=== PATIENT | male | born 1960 | race Caucasian/White ===

== ENCOUNTER 2017-10-20 05:14 | Outpatient (CLI) | payer MEDICARE, MEDICAID ==
[~2017-10-20 05:14] MED LIST: CHOL100046 PO; CYAN-19 PO; DILT240C52 PO; FLO0.4C PO; HYDR-565 PO; LEVO125T PO; METO50TA7 PO; ROSU40TA PO
== END 2017-10-20 23:59 | disposition home or self-care (01) ==
LOC: DIABETIC 05:14
PROVIDERS: ATTEND Specialist
DX: I13.0 Hypertensive heart and chronic kidney disease with heart failure and stage 1 through stage 4 chronic kidney disease, or unspecified chronic kidney disease (principal); E11.22 Type 2 diabetes mellitus with diabetic chronic kidney disease; N18.9 Chronic kidney disease, unspecified; J44.9 Chronic obstructive pulmonary disease, unspecified
CPT/HCPCS: G0108

== ENCOUNTER 2017-12-02 22:50 | Inpatient (IN) | payer MEDICARE, MEDICAID ==
[~2017-12-02] VITALS: Ht 193 cm; Wt 113.6 kg
[2017-12-02] MEDS ORDERED: morphine 4 MG/ML inj SYRINge IV ONE (23:55)
[2017-12-02] MEDS ORDERED: proparacaine 0.5% ophthalmic drops 15ml RIGHTEYE ONE (23:55)
[2017-12-02] MEDS ORDERED: ondansetron/PF 4mg/2ml inj IV ONE (23:55)
[2017-12-02] MEDS ORDERED: normal saline 1000ML IV soln IVB ONE (23:55)
[2017-12-03] MEDS: diatr meglu/diatrizoate 30ml oral sol.-(3 dose) bottle PO SCH ×3 (00:27→03:18)
[2017-12-03 00:59] LABS: PARTIAL THROMBOPLASTIN TIME 26 SECONDS (22-32); PROTHROMBIN TIME 10.7 SECONDS (9.0-12.0)
[2017-12-03 01:01] LABS: CLARITY,URINE CLEAR (Clear); COLOR,URINE YELLOW (Yellow); GLUCOSE, URINE NEGATIVE (Neg); KETONES,URINE NEGATIVE (Neg); LEUKOCYTE ESTERASE ,URINE NEGATIVE (Neg); NITRITES, URINE NEGATIVE (Neg); OCCULT BLOOD,URINE NEGATIVE (Neg); PROTEIN,URINE NEGATIVE (Neg); UROBILINOGEN,URINE 0.2 E.U/dL (0.2-1.0)
[2017-12-03 01:04] LABS: ALANINE AMINOTRANSFERASE 22 U/L (12-78); ALBUMIN 3.6 G/DL (3.4-5.0); ALKALINE PHOSPHATASE 82 IU/L (46-116); ANION GAP 8 (8-16); ASPARTATE AMINO TRANSFERASE 22 U/L (10-37); BILIRUBIN,TOTAL 0.3 MG/DL (0.1-1.0); BLOOD UREA NITROGEN 21 MG/DL (7-18); CHLORIDE 107 MMOL/L (99-107); ETHANOL < 0.010 GM/DL (0.0-0.010); GLUCOSE 95 MG/DL (70-104); LIPASE 244 U/L (73-393); MAGNESIUM 2.1 MG/DL (1.5-2.4); POTASSIUM 3.4 MMOL/L (3.5-5.1); SODIUM 144 MMOL/L (135-145); TOTAL CARBON DIOXIDE 29.2 MMOL/L (24-32); TOTAL PROTEIN 7.3 G/DL (6.4-8.2); eGFR 76 ML/MIN
[2017-12-03 01:08] LABS: UA COLLECTION TYPE URINAL
[2017-12-03] MEDS ORDERED: benoxinate/fluorescein ophth drops 5ml bottle RIGHTEYE ONE (01:40)
[2017-12-03 01:49] LABS: BASOPHILS # (AUTO) 0.1 X10'3 (0-0.2); BASOPHILS % (AUTO) 0.8 % (0-1); EOSINOPHILS # (AUTO) 0.2 X10'3 (0-0.9); HEMATOCRIT 42.4 % (42.0-52.0); HEMOGLOBIN 14.1 g/dl (14.0-17.9); LYMPHOCYTES # (AUTO) 1.9 X10'3 (1.1-4.8); LYMPHOCYTES % (AUTO) 24.7 % (21-51); MEAN CORPUSCULAR HEMOGLOBIN 27.2 PG (27.0-31.0); MEAN CORPUSCULAR HGB CONC 33.2 % (33.0-36.5); MEAN CORPUSCULAR VOLUME 81.9 FL (78-98); MEAN PLATELET VOLUME 9.1 FL (7.4-10.4); MONOCYTES # (AUTO) 0.6 X10'3 (0-0.9); MONOCYTES % (AUTO) 7.9 % (2-12); NEUTROPHILS % (AUTO) 63.6 % (42-75); PLATELET COUNT 271 X10'3 (140-440); RED BLOOD COUNT 5.18 X10'6 (4.70-6.10); RED CELL DISTRIBUTION WIDTH 15.6 % (11.5-14.5); WHITE BLOOD COUNT 7.8 X10'3 (4.5-11.0)
[2017-12-03] MEDS: morphine 4 MG/ML inj SYRINge IV PRN ×4 (03:21→15:42)
[2017-12-03] MEDS ORDERED: iohexol 300mg/ml 100ml inj. ONE (03:24)
[2017-12-03] MEDS ORDERED: metroNIDAZOLE-Flagyl 500mg/NS 100 ML IV ONE (05:30)
[2017-12-03] MEDS ORDERED: piperacillin/tazo 3.375gm/50ml 50 ML IV ONE (05:30)
[2017-12-03] MEDS ORDERED: morphine 4 MG/ML inj SYRINge IV PRN (05:35)
[2017-12-03] MEDS ORDERED: mag hydrox/Alum hydrox/simeth 30ml oral suspension PO PRN (05:35)
[2017-12-03] MEDS ORDERED: potassium Cl 20 mEq SR tablet PO PRN (05:35)
[2017-12-03] MEDS ORDERED: magnesium Cl slow-release 64mg tablet PO PRN (05:35)
[2017-12-03] MEDS ORDERED: potassium Cl 40MEQ/NS 500ml 500 ML IV PRN ×2 (05:35)
[2017-12-03] MEDS ORDERED: magnesium 2GM in 50ml NS 50 ML IV PRN (05:35)
[2017-12-03] MEDS ORDERED: ondansetron/PF 4mg/2ml inj IV PRN (05:35)
[2017-12-03] MEDS ORDERED: magnesium 4gm in 100ml NS 100 ML IV PRN (05:35)
[2017-12-03] MEDS ORDERED: acetaminophen 325mg tablet PO PRN (05:35)
[2017-12-03] MEDS ORDERED: magnesium hydroxide 30ml (MOM) UD suspension PO PRN (05:35)
[2017-12-03] MEDS ORDERED: FLO0.4C PO (05:53)
[2017-12-03] MEDS ORDERED: CYAN50005 PO (05:53)
[2017-12-03 06:06] LABS: HEMOGLOBIN A1C 6.5 % (4.5-6.2)
[2017-12-03 07:35] VITALS: BP 199/104
[2017-12-03] MEDS: diltiazem CD 120mg capsule (once-daily) PO SCH (07:48)
[2017-12-03] MEDS: K and/or MAG REPLACEMENT MC SCH (07:48)
[2017-12-03] MEDS: potassium Cl 20 mEq SR tablet PO PRN ×3 (07:49→21:53)
[2017-12-03] MEDS: heparin, porcine 5000 units/ml vial SQ SCH ×2 (07:49→20:28)
[2017-12-03] MEDS: atorvastatin 20mg tablet PO SCH (07:49)
[2017-12-03] MEDS: levoTHYROXINE 125mcg tablet PO SCH (07:49)
[2017-12-03] MEDS ORDERED: metroNIDAZOLE-Flagyl 500mg/NS 100 ML IV SCH (08:00)
[2017-12-03] MEDS ORDERED: tamsulosin 0.4mg capsule PO SCH (08:00)
[2017-12-03] MEDS ORDERED: levoFLOXACIN-Levaquin 500mg/D5 100 ML IV SCH (08:00)
[2017-12-03] MEDS ORDERED: insulin Lispro (HumaLOG) vial - multi-dose SQ SCH (09:00)
[2017-12-03] MEDS ORDERED: dextrose 50%-water 50ml dispensing syringe IV PRN ×2 (09:00)
[2017-12-03] MEDS ORDERED: MESSAGE TO PHARMACY PO ONE (09:00)
[2017-12-03] MEDS ORDERED: glucagon, human recombinant 1mg kit SUBCUT PRN (09:00)
[2017-12-03] MEDS ORDERED: dextrose ORAL solution 15 GM/59 ML bottle PO PRN ×2 (09:00)
[2017-12-03] MEDS ORDERED: PEG 3350/Na sulf,bicarb,Cl/KCl oral sol 4 liter bottle PO ONE (09:25)
[2017-12-03] MEDS: ciprofloxacin 0.3% 5ml ophthalmic solution EACHEYE SCH ×5 (09:36→23:48)
[2017-12-03 10:10] VITALS: BP 140/82
[2017-12-03] MEDS: metroNIDAZOLE 500mg tablet PO SCH ×2 (15:42→23:47)
[2017-12-03] MEDS: potassium Cl 20mEq in NS 1,000 ML IV SCH (16:36)
[2017-12-03 18:00] VITALS: BP 133/76
[2017-12-03 20:26] VITALS: BP 149/85
[2017-12-03] MEDS: tamsulosin 0.4mg capsule PO SCH (20:27)
[2017-12-03] MEDS: metoprolol succinate 25mg (24-HOUR) SR. Tablet PO SCH (20:27)
[2017-12-03] MEDS: lactobacillus rhamnosus 10,000 MMU CELLS/CAPSULE PO SCH (20:28)
[2017-12-03] MEDS ORDERED: temazepam 15mg capsule PO PRN (21:00)
[2017-12-03 21:58] VITALS: BP 171/98
[2017-12-04] VITALS (18 sets, daily range): BP systolic 137–175; BP diastolic 73–98
[2017-12-04] MEDS: potassium Cl 20mEq in NS 1,000 ML IV SCH (02:20)
[2017-12-04] MEDS: ciprofloxacin 0.3% 5ml ophthalmic solution EACHEYE SCH ×5 (04:00→20:14)
[2017-12-04 06:04] LABS: BASOPHILS # (AUTO) 0.1 X10'3 (0-0.2); BASOPHILS % (AUTO) 0.9 % (0-1); EOSINOPHILS # (AUTO) 0.2 X10'3 (0-0.9); EOSINOPHILS % (AUTO) 3.3 % (0-6); HEMATOCRIT 41.5 % (42.0-52.0); HEMOGLOBIN 13.8 g/dl (14.0-17.9); LYMPHOCYTES # (AUTO) 1.3 X10'3 (1.1-4.8); LYMPHOCYTES % (AUTO) 20.5 % (21-51); MEAN CORPUSCULAR HEMOGLOBIN 27.2 PG (27.0-31.0); MEAN CORPUSCULAR HGB CONC 33.3 % (33.0-36.5); MEAN CORPUSCULAR VOLUME 81.6 FL (78-98); MEAN PLATELET VOLUME 8.8 FL (7.4-10.4); MONOCYTES # (AUTO) 0.5 X10'3 (0-0.9); MONOCYTES % (AUTO) 7.9 % (2-12); NEUTROPHILS # (AUTO) 4.3 X10'3 (1.8-7.7); NEUTROPHILS % (AUTO) 67.4 % (42-75); PLATELET COUNT 249 X10'3 (140-440); RED BLOOD COUNT 5.09 X10'6 (4.70-6.10); RED CELL DISTRIBUTION WIDTH 15.3 % (11.5-14.5); WHITE BLOOD COUNT 6.4 X10'3 (4.5-11.0)
[2017-12-04 06:12] LABS: ALANINE AMINOTRANSFERASE 22 U/L (12-78); ALBUMIN 3.2 G/DL (3.4-5.0); ALKALINE PHOSPHATASE 80 IU/L (46-116); ANION GAP 7 (8-16); ASPARTATE AMINO TRANSFERASE 13 U/L (10-37); BILIRUBIN,TOTAL 0.7 MG/DL (0.1-1.0); BLOOD UREA NITROGEN 10 MG/DL (7-18); BUN/CREATININE RATIO 10.5 (5.4-32.0); CALCIUM 8.4 MG/DL (8.5-10.1); CHLORIDE 105 MMOL/L (99-107); CHOL/HDL RATIO 5.1 (0.00-4.99); CHOLESTEROL 179 MG/DL (0-200); CREATININE 0.95 MG/DL (0.60-1.10); GLUCOSE 112 MG/DL (70-104); HDL CHOLESTEROL 35 MG/DL (35-60); LDL CHOLESTEROL 113 MG/DL (50-100); MAGNESIUM 1.8 MG/DL (1.5-2.4); POTASSIUM 3.7 MMOL/L (3.5-5.1); SODIUM 144 MMOL/L (135-145); TOTAL CARBON DIOXIDE 31.6 MMOL/L (24-32); TOTAL PROTEIN 6.4 G/DL (6.4-8.2); TRIGLYCERIDES 124 MG/DL (20-135); eGFR 81 ML/MIN
[2017-12-04] MEDS ORDERED: MIDAZolam 5mg/ml 2ml vial ONE (06:36)
[2017-12-04] MEDS ORDERED: fentaNYL/PF 50MCG/1 ML 2ML syringe ONE ×2 (06:36→11:22)
[2017-12-04] MEDS: heparin, porcine 5000 units/ml vial SQ SCH ×2 (06:55→20:15)
[2017-12-04] MEDS: K and/or MAG REPLACEMENT MC SCH (08:00)
[2017-12-04] MEDS: diltiazem CD 120mg capsule (once-daily) PO SCH (09:32)
[2017-12-04] MEDS: lactobacillus rhamnosus 10,000 MMU CELLS/CAPSULE PO SCH ×2 (09:33→20:15)
[2017-12-04] MEDS: metroNIDAZOLE 500mg tablet PO SCH ×2 (09:33→16:39)
[2017-12-04] MEDS: tamsulosin 0.4mg capsule PO SCH ×2 (09:35→20:14)
[2017-12-04] MEDS: atorvastatin 20mg tablet PO SCH (09:36)
[2017-12-04] MEDS: levoTHYROXINE 125mcg tablet PO SCH (09:40)
[2017-12-04] MEDS ORDERED: fentaNYL/PF 50MCG/1 ML 2ML syringe IV PRN (11:25)
[2017-12-04] MEDS: levoFLOXACIN 500mg tablet PO SCH (12:57)
[2017-12-04] MEDS: morphine 4 MG/ML inj SYRINge IV PRN ×2 (13:06→22:52)
[2017-12-04] MEDS: HYDROcodone/acetaminophen 10/325mg tab PO PRN (16:44)
[2017-12-04] MEDS: metoprolol succinate 25mg (24-HOUR) SR. Tablet PO SCH (20:14)
[2017-12-05] MEDS: metroNIDAZOLE 500mg tablet PO SCH ×2 (00:14→08:22)
[2017-12-05] MEDS: ciprofloxacin 0.3% 5ml ophthalmic solution EACHEYE SCH ×4 (00:14→12:27)
[2017-12-05 05:40] LABS: BASOPHILS % (AUTO) 0.7 % (0-1); EOSINOPHILS # (AUTO) 0.3 X10'3 (0-0.9); EOSINOPHILS % (AUTO) 4.1 % (0-6); HEMATOCRIT 40.5 % (42.0-52.0); HEMOGLOBIN 13.6 g/dl (14.0-17.9); LYMPHOCYTES # (AUTO) 1.5 X10'3 (1.1-4.8); LYMPHOCYTES % (AUTO) 22.4 % (21-51); MEAN CORPUSCULAR HEMOGLOBIN 27.4 PG (27.0-31.0); MEAN CORPUSCULAR HGB CONC 33.5 % (33.0-36.5); MEAN CORPUSCULAR VOLUME 81.8 FL (78-98); MEAN PLATELET VOLUME 8.7 FL (7.4-10.4); MONOCYTES # (AUTO) 0.5 X10'3 (0-0.9); MONOCYTES % (AUTO) 8.2 % (2-12); NEUTROPHILS # (AUTO) 4.3 X10'3 (1.8-7.7); NEUTROPHILS % (AUTO) 64.6 % (42-75); PLATELET COUNT 240 X10'3 (140-440); RED BLOOD COUNT 4.94 X10'6 (4.70-6.10); RED CELL DISTRIBUTION WIDTH 15.4 % (11.5-14.5); WHITE BLOOD COUNT 6.7 X10'3 (4.5-11.0)
[2017-12-05 06:00] VITALS: BP 133/67
[2017-12-05 06:02] LABS: ALANINE AMINOTRANSFERASE 21 U/L (12-78); ALBUMIN 3.1 G/DL (3.4-5.0); ALKALINE PHOSPHATASE 74 IU/L (46-116); ANION GAP 7 (8-16); ASPARTATE AMINO TRANSFERASE 13 U/L (10-37); BILIRUBIN,TOTAL 0.5 MG/DL (0.1-1.0); BLOOD UREA NITROGEN 18 MG/DL (7-18); BUN/CREATININE RATIO 17.3 (5.4-32.0); CALCIUM 8.2 MG/DL (8.5-10.1); CHLORIDE 105 MMOL/L (99-107); CREATININE 1.04 MG/DL (0.60-1.10); GLUCOSE 106 MG/DL (70-104); MAGNESIUM 1.9 MG/DL (1.5-2.4); POTASSIUM 3.4 MMOL/L (3.5-5.1); SODIUM 142 MMOL/L (135-145); TOTAL CARBON DIOXIDE 30.2 MMOL/L (24-32); TOTAL PROTEIN 6.2 G/DL (6.4-8.2); eGFR 73 ML/MIN
[2017-12-05] MEDS: lactobacillus rhamnosus 10,000 MMU CELLS/CAPSULE PO SCH (08:22)
[2017-12-05] MEDS: diltiazem CD 120mg capsule (once-daily) PO SCH (08:22)
[2017-12-05] MEDS: atorvastatin 20mg tablet PO SCH (08:22)
[2017-12-05] MEDS: tamsulosin 0.4mg capsule PO SCH (08:22)
[2017-12-05] MEDS: levoTHYROXINE 125mcg tablet PO SCH (08:22)
[2017-12-05] MEDS: heparin, porcine 5000 units/ml vial SQ SCH (08:23)
[2017-12-05] MEDS: HYDROcodone/acetaminophen 10/325mg tab PO PRN (08:26)
[2017-12-05 10:00] VITALS: BP 161/91
[2017-12-05] MEDS ORDERED: potassium Cl 20 mEq SR tablet PO PRN ×2 (10:30)
[2017-12-05] MEDS ORDERED: K and/or MAG REPLACEMENT MC SCH (10:30)
[2017-12-05] MEDS ORDERED: potassium Cl 40MEQ/NS 500ml 500 ML IV PRN ×2 (10:30)
[2017-12-05] MEDS ORDERED: AMOX-580 PO (10:55)
[2017-12-05] MEDS ORDERED: HYDROmorphone inj. 0.5 MG/0.5 ML DISP.SYRIN IM ONE (11:25)
[2017-12-05] MEDS: levoFLOXACIN 500mg tablet PO SCH (12:27)
[2017-12-05] MEDS: morphine 4 MG/ML inj SYRINge IV PRN (12:59)
== END 2017-12-05 15:00 | disposition home or self-care (01) | DRG 392 ==
LOC: ER 22:50 → ED HOLD 12-03 05:34 → ORTHO 4S 12-03 07:15
PROVIDERS: ADMIT Internal Medicine; ATTEND Family Medicine
PROC: BW211ZZ Computerized Tomography (CT Scan) of Abdomen and Pelvis using Low Osmolar Contrast (ICD-10-PCS; 2017-12-03)
PROC: 0DJD8ZZ Inspection of Lower Intestinal Tract, Via Natural or Artificial Opening Endoscopic (ICD-10-PCS; principal; 2017-12-04)
PROC: 07DC3ZX Extraction of Pelvis Lymphatic, Percutaneous Approach, Diagnostic (ICD-10-PCS; 2017-12-04)
DX: K57.32 Diverticulitis of large intestine without perforation or abscess without bleeding (principal); I11.0 Hypertensive heart disease with heart failure; I50.9 Heart failure, unspecified; K52.9 Noninfective gastroenteritis and colitis, unspecified; H10.9 Unspecified conjunctivitis; E87.6 Hypokalemia; E03.9 Hypothyroidism, unspecified; E11.9 Type 2 diabetes mellitus without complications; Z60.2 Problems related to living alone; E78.5 Hyperlipidemia, unspecified; R59.1 Generalized enlarged lymph nodes; I25.10 Atherosclerotic heart disease of native coronary artery without angina pectoris; J44.9 Chronic obstructive pulmonary disease, unspecified; N28.9 Disorder of kidney and ureter, unspecified; N40.0 Benign prostatic hyperplasia without lower urinary tract symptoms; G89.29 Other chronic pain; I25.2 Old myocardial infarction; Z79.899 Other long term (current) drug therapy; Z87.891 Personal history of nicotine dependence; Z80.0 Family history of malignant neoplasm of digestive organs
CPT/HCPCS: 36415; 38505; 45378; 74177; 77012; 80053; 80061; 80320; 81003; 82948; 83036; 83605; 83690; 83735; 84153; 84443; 85025; 85610; 85730; 87040; 87070; 88173; 88305; 88341; 88342; 96361; 96374; 96375; 99285; A4620; G0500; J1644; J1956; J2250; J2270; J2405; J2543; J3010; J3490; J7030; Q9963; Q9967

== ENCOUNTER 2018-01-19 04:37 | Outpatient (CLI) | payer MEDICARE, MEDICAID ==
[~2018-01-19 04:37] MED LIST changes: -CYAN-19 PO; +CYAN50005 PO
== END 2018-01-19 23:59 | disposition home or self-care (01) ==
LOC: DIABETIC 04:37
PROVIDERS: ATTEND Specialist
DX: E11.9 Type 2 diabetes mellitus without complications (principal); I11.0 Hypertensive heart disease with heart failure; I50.9 Heart failure, unspecified; J44.9 Chronic obstructive pulmonary disease, unspecified
CPT/HCPCS: G0108

== ENCOUNTER 2018-04-23 00:22 | Outpatient (CLI) | payer MEDICARE, MEDICAID | END 2018-04-23 23:59 | disposition home or self-care (01) | LOC: DIABETIC 00:22 | PROVIDERS: ATTEND Specialist | DX: E11.9 Type 2 diabetes mellitus without complications (principal) | CPT/HCPCS: G0108 ==

== ENCOUNTER 2018-05-29 19:52 | Emergency (ER) | payer MEDICARE, MEDICAID ==
[~2018-05-29] VITALS: Ht 185.4 cm; Wt 107.0 kg
[2018-05-29 20:03] VITALS: BP 159/93
[2018-05-29] MEDS ORDERED: ketorolac tromethamine 15mg/ml inj. IM ONE (21:40)
[2018-05-29] MEDS ORDERED: NAPR-56 PO (21:46)
== END 2018-05-29 22:09 | disposition home or self-care (01) ==
LOC: ER 19:53
DX: M54.5 Low back pain (principal); I25.10 Atherosclerotic heart disease of native coronary artery without angina pectoris; I11.0 Hypertensive heart disease with heart failure; I50.9 Heart failure, unspecified; I25.2 Old myocardial infarction; J44.9 Chronic obstructive pulmonary disease, unspecified; E11.9 Type 2 diabetes mellitus without complications; G89.29 Other chronic pain
CPT/HCPCS: 96372; 99283; J1885

== ENCOUNTER 2018-07-24 00:40 | Outpatient (CLI) | payer MEDICARE, MEDICAID ==
[~2018-07-24 00:40] MED LIST changes: +HYDR-4353 PO; -HYDR-565 PO
== END 2018-07-24 23:59 | disposition home or self-care (01) ==
LOC: DIABETIC 00:40
PROVIDERS: ATTEND Specialist
DX: E11.9 Type 2 diabetes mellitus without complications (principal); J44.9 Chronic obstructive pulmonary disease, unspecified; I11.0 Hypertensive heart disease with heart failure; I50.9 Heart failure, unspecified; Z79.899 Other long term (current) drug therapy
CPT/HCPCS: G0108

== ENCOUNTER 2018-10-25 03:23 | Outpatient (CLI) | payer MEDICARE, MEDICAID | END 2018-10-25 23:59 | disposition home or self-care (01) | LOC: DIABETIC 03:23 | PROVIDERS: ATTEND Specialist | DX: E11.65 Type 2 diabetes mellitus with hyperglycemia (principal); I11.0 Hypertensive heart disease with heart failure; I50.9 Heart failure, unspecified; J44.9 Chronic obstructive pulmonary disease, unspecified; Z79.899 Other long term (current) drug therapy | CPT/HCPCS: G0108 ==

== ENCOUNTER → 2018-12-04 | Emergency (ER) | payer MEDICARE, MEDICAID ==
[~2018-12-04] VITALS: Ht 193 cm; Wt 124.0 kg
[~2018-12-04] MED LIST changes: +CIPR-230 PO; +METR-159 PO; +potassium Cl 20 mEq SR tablet PO ONE
[2018-12-04 22:20] VITALS: BP 162/89
[2018-12-04 22:51] LABS: BASOPHILS # (AUTO) 0.1 X10'3 (0-0.2); BASOPHILS % (AUTO) 1.1 % (0-1); EOSINOPHILS # (AUTO) 0.1 X10'3 (0-0.9); EOSINOPHILS % (AUTO) 1.9 % (0-6); HEMATOCRIT 46.5 % (42.0-52.0); HEMOGLOBIN 15.7 g/dl (14.0-17.9); LYMPHOCYTES # (AUTO) 1.6 X10'3 (1.1-4.8); LYMPHOCYTES % (AUTO) 19.6 % (21-51); MEAN CORPUSCULAR HEMOGLOBIN 28.8 PG (27.0-31.0); MEAN CORPUSCULAR HGB CONC 33.8 g/dL (33.0-36.5); MEAN PLATELET VOLUME 8.4 FL (7.4-10.4); MONOCYTES # (AUTO) 0.6 X10'3 (0-0.9); MONOCYTES % (AUTO) 8.1 % (2-12); NEUTROPHILS # (AUTO) 5.5 X10'3 (1.8-7.7); NEUTROPHILS % (AUTO) 69.3 % (42-75); PLATELET COUNT 246 X10'3 (140-440); RED BLOOD COUNT 5.47 X10'6 (4.70-6.10); RED CELL DISTRIBUTION WIDTH 14.6 % (11.5-14.5)
[2018-12-04 22:58] LABS: ALANINE AMINOTRANSFERASE 29 U/L (12-78); ALBUMIN 3.9 G/DL (3.4-5.0); ALBUMIN/GLOBULIN RATIO 1.1 (1.1-1.5); ALKALINE PHOSPHATASE 90 IU/L (46-116); ANION GAP 7 (8-16); ASPARTATE AMINO TRANSFERASE 19 U/L (10-37); BILIRUBIN,TOTAL 0.5 MG/DL (0.1-1.0); BLOOD UREA NITROGEN 28 MG/DL (7-18); BUN/CREATININE RATIO 23.9 (5.4-32.0); CALCIUM 9.4 MG/DL (8.5-10.1); CHLORIDE 102 MMOL/L (99-107); CREATININE 1.17 MG/DL (0.60-1.10); GLUCOSE 119 MG/DL (70-104); POTASSIUM 3.2 MMOL/L (3.5-5.1); SODIUM 141 MMOL/L (135-145); TOTAL CARBON DIOXIDE 31.8 MMOL/L (24-32); TOTAL PROTEIN 7.5 G/DL (6.4-8.2); eGFR 64 ML/MIN
[2018-12-04 22:59] LABS: PROTHROMBIN TIME 10.4 SECONDS (9.0-12.0)
[2018-12-04 23:59] LABS: CLARITY,URINE CLEAR (Clear); COLOR,URINE YELLOW (Yellow); GLUCOSE, URINE NEGATIVE (Neg); KETONES,URINE NEGATIVE (Neg); LEUKOCYTE ESTERASE ,URINE NEGATIVE (Neg); NITRITES, URINE NEGATIVE (Neg); OCCULT BLOOD,URINE NEGATIVE (Neg); PROTEIN,URINE NEGATIVE (Neg); UROBILINOGEN,URINE 0.2 E.U/dL (0.2-1.0)
[2018-12-05] LABS: UA COLLECTION TYPE URINAL
== END | disposition home or self-care (01) ==
LOC: ER 21:59
DX: K42.9 Umbilical hernia without obstruction or gangrene (principal); E87.6 Hypokalemia; R10.33 Periumbilical pain; I25.10 Atherosclerotic heart disease of native coronary artery without angina pectoris; I11.0 Hypertensive heart disease with heart failure; I50.9 Heart failure, unspecified; I25.2 Old myocardial infarction; J44.9 Chronic obstructive pulmonary disease, unspecified; E11.9 Type 2 diabetes mellitus without complications; G89.29 Other chronic pain; Z98.890 Other specified postprocedural states; Z98.84 Bariatric surgery status; Z79.899 Other long term (current) drug therapy
CPT/HCPCS: 36415; 74018; 80053; 81003; 85025; 85610; 99284

== ENCOUNTER 2019-01-09 05:14 | Inpatient (IN) | payer MEDICARE, MEDICAID ==
[2019-01-04 11:24] LABS: CLARITY,URINE CLEAR (Clear); COLOR,URINE YELLOW (Yellow); GLUCOSE, URINE NEGATIVE (Neg); KETONES,URINE TRACE mg/dl (Neg); LEUKOCYTE ESTERASE ,URINE NEGATIVE (Neg); NITRITES, URINE NEGATIVE (Neg); OCCULT BLOOD,URINE NEGATIVE (Neg); PH,URINE 6.5 (4.8-8.0); PROTEIN,URINE NEGATIVE (Neg)
[2019-01-04 11:25] LABS: UA COLLECTION TYPE CLN CATCH MIDSTREAM
[2019-01-04 12:09] LABS: BASOPHILS # (AUTO) 0.1 X10'3 (0-0.2); BASOPHILS % (AUTO) 0.7 % (0-1); EOSINOPHILS # (AUTO) 0.1 X10'3 (0-0.9); EOSINOPHILS % (AUTO) 1.6 % (0-6); LYMPHOCYTES # (AUTO) 1.6 X10'3 (1.1-4.8); LYMPHOCYTES % (AUTO) 19.1 % (21-51); MEAN CORPUSCULAR HEMOGLOBIN 29.1 PG (27.0-31.0); MEAN CORPUSCULAR HGB CONC 33.7 g/dL (33.0-36.5); MEAN CORPUSCULAR VOLUME 86.2 FL (78-98); MEAN PLATELET VOLUME 8.9 FL (7.4-10.4); MONOCYTES # (AUTO) 0.7 X10'3 (0-0.9); MONOCYTES % (AUTO) 7.9 % (2-12); NEUTROPHILS % (AUTO) 70.7 % (42-75); PRE OP HEMATOCRIT 46.5 % (42.0-52.0); PRE OP HEMOGLOBIN 15.7 g/dL (14.0-17.9); PRE OP PLATELET COUNT 257 X10'3 (140-440); RED CELL DISTRIBUTION WIDTH 14.9 % (11.5-14.5)
[2019-01-04 12:25] LABS: ALBUMIN 3.9 G/DL (3.4-5.0); ALBUMIN/GLOBULIN RATIO 1.1 (1.1-1.5); ALKALINE PHOSPHATASE 95 IU/L (46-116); BLOOD UREA NITROGEN 18 MG/DL (7-18); BUN/CREATININE RATIO 15.1 (5.4-32.0); CHLORIDE 102 MMOL/L (99-107); CREATININE 1.19 MG/DL (0.60-1.10); PRE OP ALT 29 U/L (30-65); PRE OP ANION GAP 4 (8-16); PRE OP AST 18 U/L (10-37); PRE OP BILIRUB, TOTAL 0.8 MG/DL (0.0-1.0); PRE OP GLUCOSE 116 MG/DL (70-104); PRE OP INR 1.1 INR; PRE OP PROTIME 10.7 SECONDS (9.0-12.0); PRE OP SODIUM 140 MMOL/L (135-145); TOTAL CARBON DIOXIDE 33.8 MMOL/L (24-32); TOTAL PROTEIN 7.4 G/DL (6.4-8.2); eGFR 62 ML/MIN
[2019-01-04 12:27] LABS: PRE OP POTASSIUM 3.1 MMOL/L (3.4-5.1)
[2019-01-04 12:28] LABS: HEMOGLOBIN A1C 6.3 % (4.5-6.2)
[2019-01-09] VITALS (28 sets, daily range): BP systolic 103–144; BP diastolic 58–81
[~2019-01-09] VITALS: Ht 193 cm; Wt 124.1 kg
[~2019-01-09 05:14] MED LIST changes: +AMLO5TAB16 PO; +ATOR20TA66 PO; +CHLO25TA10 PO; -CIPR-230 PO; +LISI40TA4 PO; -METO50TA7 PO; -METR-159 PO; +OMEP40CA37 PO; -ROSU40TA PO; -potassium Cl 20 mEq SR tablet PO ONE; +ringers solution, lacted 1,000 ML IV SCH
[2019-01-09] MEDS ORDERED: cefazolin/dext.iso 2gm/100 ML IV ONE (05:30)
[2019-01-09] MEDS ORDERED: famotidine 20mg tablet PO ONE (05:30)
[2019-01-09] MEDS ORDERED: ROSU40TA PO (05:50)
[2019-01-09] MEDS ORDERED: METO50TA7 PO (05:50)
[2019-01-09] MEDS ORDERED: LIDOcaine 1% (10mg/ml) 2ml vial ONE (05:53)
[2019-01-09 06:41] LABS: ISTAT IONIZED CALCIUM 1.15 mmol/L (1.03-1.32); ISTAT K 2.9 mmol/L (3.5-5.1)
[2019-01-09] MEDS ORDERED: BUPIVAcaine/PF 2.5mg/ml (0.25%) 10ml vial ONE ×2 (06:52→09:01)
[2019-01-09] MEDS ORDERED: ceFAZolin 1000mg inj ONE (06:52)
[2019-01-09] MEDS ORDERED: potassium Cl 20 mEq/100mL bag IV STA (07:06)
[2019-01-09] MEDS ORDERED: Potassium Cl 40 MEQ in NS 500 ML IV ONE (07:15)
[2019-01-09] MEDS ORDERED: midazolam 2 mg/2 ml injection ONE (08:26)
[2019-01-09] MEDS ORDERED: fentaNYL /PF 50mcg/ml 5ml ampule ONE (08:26)
[2019-01-09] MEDS ORDERED: sevoflurane 250ml liquid IH ONE (08:59)
[2019-01-09] MEDS ORDERED: ePHEDrine 50MG/ML INJ. ONE (08:59)
[2019-01-09] MEDS ORDERED: BUPIVACAINE liposomal/PF 13.3 MG/ML vial IM ONE (09:01)
[2019-01-09] MEDS ORDERED: ringers solution, lacted 1,000 ML IV SCH (09:38)
[2019-01-09] MEDS ORDERED: morphine 4 MG/ML inj SYRINge IV PRN ×2 (09:40)
[2019-01-09] MEDS ORDERED: proCHLORperazine 10 MG/2 ml inj IV PRN (09:40)
[2019-01-09] MEDS ORDERED: ondansetron/PF 4mg/2ml inj IV PRN ×2 (09:40→12:55)
[2019-01-09] MEDS ORDERED: meperidine/PF 25mg/ml syringe IV PRN ×2 (09:40)
[2019-01-09] MEDS ORDERED: rocuronium 10mg/ml inj IV ONE (10:52)
[2019-01-09] MEDS ORDERED: glycopyrrolate 0.2mg/ml inj ONE (10:52)
[2019-01-09] MEDS ORDERED: neostigmine methylsulfate 1 MG/ML 10ml vial ONE (10:52)
[2019-01-09] MEDS ORDERED: propofol inj 20 ML IV ONE (10:53)
--- NOTE | 2019-01-09 11:20 | NUR ---
Received from OR via BED , accompanied by Anesthesiologist DR REDDY and report given by Anesthesiolgist, PATIENT WAKING UP, DENIES PAIN, V/S WNL, CSM INTACT, ABDOMEN DRESSING CDI WITH 5 BANDAIDS, SCD ON, 20G PIV TO Ian CORRALES
[2019-01-09] MEDS ORDERED: HYDROcodone/acetaminophen 10/325mg tab PO ONE (11:45)
[2019-01-09] MEDS: meperidine/PF 25mg/ml syringe IV PRN ×3 (11:45→12:37)
[2019-01-09] MEDS ORDERED: HYDROcodone/acetaminophen 10/325mg tab PO PRN ×2 (12:55→13:05)
[2019-01-09] MEDS ORDERED: diphenhydrAMINE 25mg capsule PO PRN (12:55)
--- NOTE | 2019-01-09 13:00 | NUR ---
DR LO STATED PATIENT TO BE ADMITTED, AWAITING ROOM. PATIENT PAIN IS IMPROVING
[2019-01-09] MEDS ORDERED: pantoprazole 40mg Tablet.DR PO PRN (13:05)
--- NOTE | 2019-01-09 14:00 | NUR ---
PATIENT A&OX4, DENIES PAIN, V/S WNL, CSM INTACT, ABDOMEN DRESSING CDI WITH 5 BANDAIDS, SCD ON, 20G PIV TO LUE, PATIENT TAKEN TO WITH ALL BELONGINGS AND HOOKED UP TO MONITORS IN ROOM AND REPORT GIVEN TO RN WHO HAS TAKEN OVER PATIENT CARE.
[2019-01-09] MEDS ORDERED: naloxone 0.4 mg/ml inj IV PRN (15:25)
[2019-01-09] MEDS ORDERED: CADD PCA waste documentation MC PRN (15:25)
[2019-01-09] MEDS ORDERED: morphine/NS 5 mg/ml CADD 50 ML IV SCH (15:25)
--- NOTE | 2019-01-09 18:30 | NUR ---
Patient in room [facility]. I have received report from JAMES Maldonado and had the opportunity to ask questions and assume patient care.
[2019-01-09] MEDS: HYDROmorphone/NS 1 mg/ml CADD 50 ML IV SCH ×3 (20:07→23:00)
[2019-01-09] MEDS: metoprolol succinate 25mg (24-HOUR) SR. Tablet PO SCH (21:14)
[2019-01-09] MEDS: amLODIPine 5mg tablet PO SCH (21:15)
[2019-01-09] MEDS: atorvastatin 20mg tablet PO SCH (21:16)
[2019-01-09] MEDS: docusate sod 100mg capsule PO SCH (21:17)
[2019-01-09] MEDS: tamsulosin 0.4mg capsule PO SCH (21:17)
[2019-01-09] MEDS: sennosides/docusate sodium tablet PO SCH (21:18)
[2019-01-09] MEDS ORDERED: potassium chloride 10mEq CAPSULE.SA PO SCH (21:45)
[2019-01-09] MEDS ORDERED: potassium chloride 10mEq ER tablet PO ONE (22:00)
[2019-01-09] MEDS ORDERED: potassium chloride 10mEq ER tablet PO SCH (22:00)
[2019-01-09] MEDS ORDERED: ketorolac tromethamine 15mg/ml inj. IV PRN (22:00)
--- NOTE | 2019-01-09 23:00 | NUR ---
pt states his pain increases with activity, otherwise states he has no pain; pt aware he has toradol if needed; denies need at this tme
[2019-01-10] VITALS: BP 125/66
[2019-01-10] MEDS: HYDROmorphone/NS 1 mg/ml CADD 50 ML IV SCH ×12 (01:00→23:00)
[2019-01-10 04:00] VITALS: BP 118/62
[2019-01-10 07:40] VITALS: BP 109/65
[2019-01-10] MEDS: sod chloride 0.9% 10ml flush syringe IV SCH ×2 (07:51→15:14)
[2019-01-10] MEDS: normal saline 1000ml 1,000 ML IV SCH (07:52)
[2019-01-10] MEDS ORDERED: atorvastatin 20mg tablet PO SCH (08:00)
[2019-01-10] MEDS ORDERED: potassium Cl 20 mEq SR tablet PO SCH (08:45)
[2019-01-10] MEDS: levoTHYROXINE 25mcg tablet PO SCH (09:14)
[2019-01-10] MEDS: levoTHYROXINE 112mcg tablet PO SCH (09:15)
[2019-01-10] MEDS: docusate sod 100mg capsule PO SCH ×2 (09:15→20:33)
[2019-01-10] MEDS: tamsulosin 0.4mg capsule PO SCH ×2 (09:18→20:33)
[2019-01-10] MEDS: diltiazem CD 120mg capsule (once-daily) PO SCH (09:18)
[2019-01-10] MEDS: sennosides/docusate sodium tablet PO SCH ×2 (09:18→20:33)
[2019-01-10] MEDS: vitamin D (cholecalciferol) 1,000 unit tablet PO SCH (09:18)
[2019-01-10] MEDS: chlorthalidone 25mg tablet PO SCH (09:19)
[2019-01-10] MEDS: lisinopril 20mg tablet PO SCH (09:19)
[2019-01-10] MEDS: cyanocobalamin 500mcg tablet PO SCH (09:25)
[2019-01-10 11:46] VITALS: BP 135/69
--- NOTE | 2019-01-10 18:32 | NUR ---
Patient in room [facility]. I have received report from JAMES Littlejohn and had the opportunity to ask questions and assume patient care. Addendum: 01/10/19 at 1833 by Vicki Cavanaugh RN Amended: Links added.
--- NOTE | 2019-01-10 18:33 | NUR ---
Problems reprioritized. Patient report given, questions answered & plan of care reviewed with JAMES Gupta.
[2019-01-10 19:00] VITALS: BP 125/66
[2019-01-10] MEDS: potassium chloride 10mEq ER tablet PO SCH (20:33)
[2019-01-10] MEDS: metoprolol succinate 25mg (24-HOUR) SR. Tablet PO SCH (22:25)
[2019-01-10] MEDS: amLODIPine 5mg tablet PO SCH ×2 (22:25→22:29)
[2019-01-10] MEDS: atorvastatin 20mg tablet PO SCH (22:26)
[2019-01-11] VITALS: BP 111/60
[2019-01-11] MEDS: HYDROmorphone/NS 1 mg/ml CADD 50 ML IV SCH ×12 (01:00→23:00)
--- NOTE | 2019-01-11 06:00 | NUR ---
Patient in room [facility]. I have received report from Candy Gamez RN and had the opportunity to ask questions and assume patient care.
[2019-01-11] MEDS: normal saline 1000ml 1,000 ML IV SCH (06:09)
--- NOTE | 2019-01-11 06:13 | NUR ---
Problems reprioritized. Patient report given, questions answered & plan of care reviewed with JAMES Perry. Addendum: 01/11/19 at 0613 by Vicki Cavanaugh RN Amended: Links added.
[2019-01-11] MEDS: sod chloride 0.9% 10ml flush syringe IV SCH ×4 (06:47→23:19)
[2019-01-11 07:30] VITALS: BP 109/59
[2019-01-11] MEDS: diltiazem CD 120mg capsule (once-daily) PO SCH (09:27)
[2019-01-11] MEDS: chlorthalidone 25mg tablet PO SCH (09:28)
[2019-01-11] MEDS: tamsulosin 0.4mg capsule PO SCH ×2 (09:28→20:13)
[2019-01-11] MEDS: docusate sod 100mg capsule PO SCH ×2 (09:28→20:13)
[2019-01-11] MEDS: potassium chloride 10mEq ER tablet PO SCH ×2 (09:29→20:14)
[2019-01-11] MEDS: sennosides/docusate sodium tablet PO SCH ×2 (09:30→20:13)
[2019-01-11] MEDS: levoTHYROXINE 25mcg tablet PO SCH (09:30)
[2019-01-11] MEDS: cyanocobalamin 500mcg tablet PO SCH (09:31)
[2019-01-11] MEDS: levoTHYROXINE 112mcg tablet PO SCH (09:31)
[2019-01-11] MEDS: vitamin D (cholecalciferol) 1,000 unit tablet PO SCH (09:32)
[2019-01-11] MEDS: lisinopril 20mg tablet PO SCH (09:33)
[2019-01-11 11:30] VITALS: BP 109/61
--- NOTE | 2019-01-11 18:26 | NUR ---
Patient in room [facility]. I have received report from JAMES Perry and had the opportunity to ask questions and assume patient care. Addendum: 01/11/19 at 1827 by Vicki Cavanaugh RN Amended: Links added.
--- NOTE | 2019-01-11 18:30 | NUR ---
Problems reprioritized. Patient report given, questions answered & plan of care reviewed with Candy Gamez RN.
[2019-01-11 20:00] VITALS: BP 96/56
[2019-01-11] MEDS: atorvastatin 20mg tablet PO SCH (21:20)
[2019-01-11] MEDS: metoprolol succinate 25mg (24-HOUR) SR. Tablet PO SCH (21:20)
[2019-01-11] MEDS: amLODIPine 5mg tablet PO SCH (21:21)
[2019-01-12 00:47] VITALS: BP 109/61
[2019-01-12] MEDS: HYDROmorphone/NS 1 mg/ml CADD 50 ML IV SCH ×7 (01:00→13:00)
[2019-01-12 06:30] VITALS: BP 111/63
--- NOTE | 2019-01-12 07:00 | NUR ---
Patient in room [facility]. I have received report from JAMES Gupta and had the opportunity to ask questions and assume patient care.
[2019-01-12] MEDS: sod chloride 0.9% 10ml flush syringe IV SCH (08:00)
[2019-01-12] MEDS: docusate sod 100mg capsule PO SCH (10:28)
[2019-01-12] MEDS: sennosides/docusate sodium tablet PO SCH (10:29)
[2019-01-12] MEDS: vitamin D (cholecalciferol) 1,000 unit tablet PO SCH (10:29)
[2019-01-12] MEDS: levoTHYROXINE 112mcg tablet PO SCH (10:30)
[2019-01-12] MEDS: cyanocobalamin 500mcg tablet PO SCH (10:30)
[2019-01-12] MEDS: tamsulosin 0.4mg capsule PO SCH (10:31)
[2019-01-12] MEDS: levoTHYROXINE 25mcg tablet PO SCH (10:31)
[2019-01-12] MEDS: potassium chloride 10mEq ER tablet PO SCH (10:31)
[2019-01-12 10:32] VITALS: BP_SYST 111
[2019-01-12] MEDS: diltiazem CD 120mg capsule (once-daily) PO SCH (10:32)
[2019-01-12] MEDS: lisinopril 20mg tablet PO SCH (10:32)
[2019-01-12] MEDS: chlorthalidone 25mg tablet PO SCH (10:32)
--- NOTE | 2019-01-12 16:50 | NUR ---
DC inst provided to pt. IV DC'd, tip intact. All belongings sent w/pt. WC to front lobby.
== END 2019-01-12 16:56 | disposition home or self-care (01) | DRG 337 ==
LOC: PAS 05:14 → SUR 3N 12:53 → OBSVTOIN 12:53
PROVIDERS: ADMIT Surgery; ATTEND Surgery
PROC: 0DN84ZZ Release Small Intestine, Percutaneous Endoscopic Approach (ICD-10-PCS; 2019-01-09)
PROC: 3E0T3BZ Introduction of Anesthetic Agent into Peripheral Nerves and Plexi, Percutaneous Approach (ICD-10-PCS; 2019-01-09)
PROC: 0WUF4JZ Supplement Abdominal Wall with Synthetic Substitute, Percutaneous Endoscopic Approach (ICD-10-PCS; principal; 2019-01-09 08:59)
PROC: 5A09357 Assistance with Respiratory Ventilation, Less than 24 Consecutive Hours, Continuous Positive Airway Pressure (ICD-10-PCS; 2019-01-10)
PROC: 5A09357 Assistance with Respiratory Ventilation, Less than 24 Consecutive Hours, Continuous Positive Airway Pressure (ICD-10-PCS; 2019-01-11)
DX: K43.9 Ventral hernia without obstruction or gangrene (principal); K66.0 Peritoneal adhesions (postprocedural) (postinfection); E11.9 Type 2 diabetes mellitus without complications; E87.6 Hypokalemia; G47.33 Obstructive sleep apnea (adult) (pediatric); M19.90 Unspecified osteoarthritis, unspecified site; N40.1 Benign prostatic hyperplasia with lower urinary tract symptoms; M54.9 Dorsalgia, unspecified; R09.02 Hypoxemia; R33.9 Retention of urine, unspecified; G89.29 Other chronic pain; I10 Essential (primary) hypertension; Z79.899 Other long term (current) drug therapy; Z87.891 Personal history of nicotine dependence; Z80.0 Family history of malignant neoplasm of digestive organs
CPT/HCPCS: 36415; 71046; 76882; 80047; 80053; 81003; 83036; 84132; 84443; 85025; 85610; 85730; 87070; 93005; 94660; 94760; A7000; C1758; C1781; G0378; J0690; J1170; J1885; J2175; J2250; J2704; J2710; J3010; J3480; J3490; J7030; J7120

== ENCOUNTER 2019-01-24 05:00 | Outpatient (CLI) | payer MEDICARE, MEDICAID ==
[~2019-01-24 05:00] MED LIST changes: +METO50TA7 PO; +ROSU40TA PO; -ringers solution, lacted 1,000 ML IV SCH
== END 2019-01-24 23:59 | disposition home or self-care (01) ==
LOC: DIABETIC 05:00
PROVIDERS: ATTEND Specialist
DX: E11.65 Type 2 diabetes mellitus with hyperglycemia (principal); Z79.899 Other long term (current) drug therapy
CPT/HCPCS: G0108

== ENCOUNTER 2019-05-02 02:15 | Outpatient (CLI) | payer MEDICARE, MEDICAID ==
[~2019-05-02 02:15] MED LIST changes: +OMEP40CA13 PO; -OMEP40CA37 PO
== END 2019-05-02 23:59 | disposition home or self-care (01) ==
LOC: DIABETIC 02:15
PROVIDERS: ATTEND Specialist
DX: E11.65 Type 2 diabetes mellitus with hyperglycemia (principal); I11.0 Hypertensive heart disease with heart failure; I50.9 Heart failure, unspecified; J44.9 Chronic obstructive pulmonary disease, unspecified; Z79.899 Other long term (current) drug therapy
CPT/HCPCS: G0108

== ENCOUNTER 2019-08-01 08:00 | Outpatient (CLI) | payer MEDICARE, MEDICAID | END 2019-08-01 23:59 | disposition home or self-care (01) | LOC: DIABETIC 08:00 | PROVIDERS: ATTEND Specialist | DX: E11.9 Type 2 diabetes mellitus without complications (principal); Z71.3 Dietary counseling and surveillance | CPT/HCPCS: G0108 ==

== ENCOUNTER 2019-10-31 02:07 | Outpatient (CLI) | payer MEDICARE, MEDICAID | END 2019-10-31 23:59 | disposition home or self-care (01) | LOC: DIABETIC 02:07 | PROVIDERS: ATTEND Specialist | DX: E11.65 Type 2 diabetes mellitus with hyperglycemia (principal) | CPT/HCPCS: G0108 ==

== ENCOUNTER 2020-12-08 13:28 | Emergency (ER) | payer MEDICARE, MEDICAID ==
[~2020-12-08] VITALS: Ht 193 cm; Wt 119.3 kg
[~2020-12-08 13:28] MED LIST changes: +LISI40TA13 PO; -LISI40TA4 PO
[2020-12-08 16:15] LABS: CLARITY,URINE CLOUDY (Clear); COLOR,URINE YELLOW (Yellow); GLUCOSE, URINE NEGATIVE (Neg); KETONES,URINE NEGATIVE (Neg); LEUKOCYTE ESTERASE ,URINE MODERATE (Neg); NITRITES, URINE NEGATIVE (Neg); OCCULT BLOOD,URINE LARGE (Neg); PROTEIN,URINE 100 mg/dl (Neg)
[2020-12-08 16:20] LABS: UA COLLECTION TYPE NON-SPECIFIED
[2020-12-08 16:21] LABS: SQUAMOUS EPITHELIAL CELL,UR FEW /LPF (FEW)
[2020-12-08 16:22] LABS: BACTERIA,URINE FEW /HPF (Neg); WBC,URINE TNTC /HPF (0-4)
[2020-12-08 16:25] LABS: WBC CLUMPS,URINE MANY /HPF (NEGATIVE)
[2020-12-08 16:28] LABS: RBC,URINE 50-100 /HPF (0-2)
[2020-12-08] MEDS ORDERED: CEPH-585 PO (16:44)
[2020-12-08 16:51] VITALS: BP 138/81
== END 2020-12-08 16:52 | disposition home or self-care (01) ==
LOC: ER 13:28
DX: N39.0 Urinary tract infection, site not specified (principal); I25.10 Atherosclerotic heart disease of native coronary artery without angina pectoris; I50.9 Heart failure, unspecified; I11.0 Hypertensive heart disease with heart failure; I25.2 Old myocardial infarction; J44.9 Chronic obstructive pulmonary disease, unspecified; E11.9 Type 2 diabetes mellitus without complications; G89.29 Other chronic pain; Z98.84 Bariatric surgery status; Z98.890 Other specified postprocedural states
CPT/HCPCS: 81001; 87088; 99283

== ENCOUNTER 2021-01-18 14:36 | Emergency (ER) | payer MEDICARE, MEDICAID ==
[~2021-01-18] VITALS: Ht 193 cm; Wt 113.6 kg
[~2021-01-18 14:36] MED LIST changes: +LIDOcaine 1% W/epiNEPHrine 1:100,000 20ml vial ONE
[2021-01-18 15:28] VITALS: BP 122/74
[2021-01-18] MEDS ORDERED: TETanus/Pertussis (Acell)/Diphther VAC/PF (Tdap-Adult) 0.5ml syringe IMVAC ONE (16:25)
[2021-01-18] MEDS ORDERED: bacitracin 15gm ointment TP ONE (16:25)
== END 2021-01-18 17:15 | disposition home or self-care (01) ==
LOC: ER 14:36
DX: S71.112A Laceration without foreign body, left thigh, initial encounter (principal); I25.10 Atherosclerotic heart disease of native coronary artery without angina pectoris; I11.0 Hypertensive heart disease with heart failure; I50.9 Heart failure, unspecified; I25.2 Old myocardial infarction; J44.9 Chronic obstructive pulmonary disease, unspecified; E11.9 Type 2 diabetes mellitus without complications; G89.29 Other chronic pain; Z20.3 Contact with and (suspected) exposure to rabies; Z98.890 Other specified postprocedural states; Z60.2 Problems related to living alone; Z79.899 Other long term (current) drug therapy; X58.XXXA Exposure to other specified factors, initial encounter; Y93.89 Activity, other specified; Y92.89 Other specified places as the place of occurrence of the external cause; Y99.8 Other external cause status
CPT/HCPCS: 12001; 90471; 90715; 99283

== ENCOUNTER 2021-07-14 22:04 | Emergency (ER) | payer MEDICARE, MEDICAID ==
[~2021-07-14] VITALS: Ht 193 cm; Wt 113.6 kg
[~2021-07-14 22:04] MED LIST changes: -LIDOcaine 1% W/epiNEPHrine 1:100,000 20ml vial ONE; -OMEP40CA13 PO; +OMEP40CA21 PO
[2021-07-14 22:27] VITALS: BP 121/68
[2021-07-15] MEDS ORDERED: proparacaine 0.5% ophthalmic drops 15ml RIGHTEYE ONE (03:05)
[2021-07-15] MEDS ORDERED: ERYT1OIN6 RIGHTEYE (04:06)
== END 2021-07-15 04:40 | disposition home or self-care (01) ==
LOC: ER 22:04
DX: S00.221A Blister (nonthermal) of right eyelid and periocular area, initial encounter (principal); H44.71 Retained (nonmagnetic) (old) foreign body in anterior chamber; H53.8 Other visual disturbances; H57.11 Ocular pain, right eye; I25.10 Atherosclerotic heart disease of native coronary artery without angina pectoris; I11.0 Hypertensive heart disease with heart failure; I50.9 Heart failure, unspecified; I25.2 Old myocardial infarction; J44.9 Chronic obstructive pulmonary disease, unspecified; E11.9 Type 2 diabetes mellitus without complications; G89.29 Other chronic pain; Z98.890 Other specified postprocedural states; Z60.2 Problems related to living alone; Z79.2 Long term (current) use of antibiotics; Z79.899 Other long term (current) drug therapy; X58.XXXA Exposure to other specified factors, initial encounter; Y93.89 Activity, other specified; Y92.89 Other specified places as the place of occurrence of the external cause; Y99.8 Other external cause status
CPT/HCPCS: 65222; 99283; 99284

== ENCOUNTER 2021-11-18 14:29 | Emergency (ER) | payer MEDICARE, MEDICAID ==
[~2021-11-18] VITALS: Ht 193 cm; Wt 118.2 kg
[2021-11-18 15:17] LABS: CLARITY,URINE CLEAR (Clear); COLOR,URINE YELLOW (Yellow); GLUCOSE, URINE NEGATIVE (Neg); KETONES,URINE NEGATIVE (Neg); LEUKOCYTE ESTERASE ,URINE NEGATIVE (Neg); NITRITES, URINE NEGATIVE (Neg); OCCULT BLOOD,URINE NEGATIVE (Neg); PROTEIN,URINE NEGATIVE (Neg)
[2021-11-18 15:22] LABS: UA COLLECTION TYPE CLN CATCH MIDSTREAM
[2021-11-18 15:23] LABS: BASOPHILS # (AUTO) 0.1 X10'3 (0-0.2); BASOPHILS % (AUTO) 0.7 % (0-1); EOSINOPHILS # (AUTO) 0.2 X10'3 (0-0.9); EOSINOPHILS % (AUTO) 1.4 % (0-6); HEMOGLOBIN 14.8 g/dl (14.0-17.9); LYMPHOCYTES # (AUTO) 1.5 X10'3 (1.1-4.8); LYMPHOCYTES % (AUTO) 13.6 % (21-51); MEAN CORPUSCULAR HEMOGLOBIN 29.5 PG (27.0-31.0); MEAN CORPUSCULAR HGB CONC 33.8 g/dL (33.0-36.5); MEAN CORPUSCULAR VOLUME 87.4 FL (78-98); MEAN PLATELET VOLUME 8.4 FL (7.4-10.4); MONOCYTES # (AUTO) 0.8 X10'3 (0-0.9); MONOCYTES % (AUTO) 7.4 % (2-12); NEUTROPHILS # (AUTO) 8.5 X10'3 (1.8-7.7); NEUTROPHILS % (AUTO) 76.9 % (42-75); PLATELET COUNT 249 X10'3 (140-440); RED BLOOD COUNT 5.03 X10'6 (4.70-6.10)
[2021-11-18 15:27] LABS: ALANINE AMINOTRANSFERASE 23 U/L (12-78); ALBUMIN 3.9 G/DL (3.4-5.0); ALBUMIN/GLOBULIN RATIO 1.1 (1.1-1.5); ALKALINE PHOSPHATASE 82 IU/L (46-116); ANION GAP 9 (8-16); ASPARTATE AMINO TRANSFERASE 18 U/L (10-37); BILIRUBIN,TOTAL 0.5 MG/DL (0.1-1.0); BLOOD UREA NITROGEN 20 MG/DL (7-18); BUN/CREATININE RATIO 14.9 (5.4-32.0); CALCIUM 8.9 MG/DL (8.5-10.1); CHLORIDE 102 MMOL/L (99-107); CREATININE 1.34 MG/DL (0.60-1.10); GLUCOSE 106 MG/DL (70-104); LIPASE 265 U/L (73-393); POTASSIUM 3.4 MMOL/L (3.5-5.1); SODIUM 145 MMOL/L (135-145); TOTAL CARBON DIOXIDE 34.5 MMOL/L (24-32); TOTAL PROTEIN 7.5 G/DL (6.4-8.2); eGFR 54 ML/MIN
[2021-11-18] MEDS ORDERED: normal saline 1000ML IV soln IVB ONE (16:55)
[2021-11-18] MEDS ORDERED: amox tr/potassium clavulanate 875/125mg TAB PO ONE (18:10)
[2021-11-18] MEDS ORDERED: AMOX-580 PO (18:15)
[2021-11-18 18:37] VITALS: BP 125/67
== END 2021-11-18 18:39 | disposition home or self-care (01) ==
LOC: ER 14:34
DX: K57.30 Diverticulosis of large intestine without perforation or abscess without bleeding (principal); N28.9 Disorder of kidney and ureter, unspecified; R10.32 Left lower quadrant pain; R19.7 Diarrhea, unspecified; I25.10 Atherosclerotic heart disease of native coronary artery without angina pectoris; I11.0 Hypertensive heart disease with heart failure; I50.9 Heart failure, unspecified; I25.2 Old myocardial infarction; J44.9 Chronic obstructive pulmonary disease, unspecified; E11.9 Type 2 diabetes mellitus without complications; G89.29 Other chronic pain; Z98.890 Other specified postprocedural states; Z60.2 Problems related to living alone; Z79.899 Other long term (current) drug therapy
CPT/HCPCS: 36415; 74176; 80053; 81003; 83690; 85025; 96360; 99284; J7030

== ENCOUNTER 2022-03-16 08:12 | Emergency (ER) | payer MEDICARE, MEDICAID ==
[~2022-03-16] VITALS: Ht 193 cm; Wt 115.5 kg
--- NOTE | 2022-03-16 09:15 | NUR ---
Shortly after xray came to take imaging of L leg, patient became diaphoretic and pale. Blood pressure found to be hypotensive. Asked patient when he last checked his blood sugar and he said he was unsure. Accucheck done, blood sugar of 159. Dr. Paris made aware of situation, ordered 2L of LR.
--- NOTE | 2022-03-16 09:59 | NUR ---
Patient responded well to fluid boluses and is no longer diaphoretic or hypotensive and states he is feeling better. No LOC at any point.
[2022-03-16 10:05] VITALS: BP 140/76
[2022-03-16] MEDS ORDERED: ringers solution, lacted 1,000 ML IV SCH (10:05)
[2022-03-16] MEDS ORDERED: morphine 4 MG/ML inj SYRINge IM ONE (10:45)
[2022-03-16] MEDS ORDERED: morphine 10mg/ml inj. IV ONE (10:55)
== END 2022-03-16 12:24 | disposition home or self-care (01) ==
LOC: ER 08:12
DX: S81.812A Laceration without foreign body, left lower leg, initial encounter (principal); I25.10 Atherosclerotic heart disease of native coronary artery without angina pectoris; I11.0 Hypertensive heart disease with heart failure; I50.9 Heart failure, unspecified; I25.2 Old myocardial infarction; J44.9 Chronic obstructive pulmonary disease, unspecified; E11.9 Type 2 diabetes mellitus without complications; G89.29 Other chronic pain; Z98.890 Other specified postprocedural states; Z60.2 Problems related to living alone; Z79.899 Other long term (current) drug therapy; W45.8XXA Other foreign body or object entering through skin, initial encounter; Y93.89 Activity, other specified; Y92.89 Other specified places as the place of occurrence of the external cause; Y99.8 Other external cause status
CPT/HCPCS: 12002; 73590; 82948; 93005; 96374; 99285; J2274; J7030; J7120; A6258; A6446; A6449

== ENCOUNTER 2022-03-19 00:06 | Emergency (ER) | payer MEDICARE, MEDICAID ==
[~2022-03-19] VITALS: Ht 193 cm; Wt 113.6 kg
[2022-03-19 00:19] VITALS: BP 156/90
[2022-03-19] MEDS ORDERED: ketorolac trometh. 30mg/ml inj. IM ONE (02:50)
[2022-03-19] MEDS ORDERED: cephalexin 250mg capsule PO ONE (02:50)
[2022-03-19] MEDS ORDERED: CEPH-585 PO (02:52)
== END 2022-03-19 03:13 | disposition home or self-care (01) ==
LOC: ER 00:07
DX: S81.812D Laceration without foreign body, left lower leg, subsequent encounter (principal); I11.9 Hypertensive heart disease without heart failure; J44.9 Chronic obstructive pulmonary disease, unspecified; E11.9 Type 2 diabetes mellitus without complications; G89.29 Other chronic pain; X58.XXXD Exposure to other specified factors, subsequent encounter; Z48.00 Encounter for change or removal of nonsurgical wound dressing
CPT/HCPCS: 96372; 99283; J1885

== ENCOUNTER 2022-03-22 01:25 | Emergency (ER) | payer MEDICARE, MEDICAID ==
[~2022-03-22] VITALS: Ht 193 cm; Wt 113.6 kg
[~2022-03-22 01:25] MED LIST changes: +CEPH-585 PO
[2022-03-22 01:29] VITALS: BP 141/88
== END 2022-03-22 02:32 | disposition home or self-care (01) ==
LOC: ER 01:26
DX: S81.812D Laceration without foreign body, left lower leg, subsequent encounter (principal); I11.0 Hypertensive heart disease with heart failure; J44.9 Chronic obstructive pulmonary disease, unspecified; G89.29 Other chronic pain; Z79.899 Other long term (current) drug therapy; Z79.2 Long term (current) use of antibiotics; X58.XXXD Exposure to other specified factors, subsequent encounter; Z48.00 Encounter for change or removal of nonsurgical wound dressing
CPT/HCPCS: 99282

== ENCOUNTER 2022-03-26 11:33 | Emergency (ER) | payer MEDICARE, MEDICAID ==
[~2022-03-26] VITALS: Ht 193 cm; Wt 113.6 kg
[2022-03-26 11:53] VITALS: BP 109/65
== END 2022-03-26 12:54 | disposition home or self-care (01) ==
LOC: ER 11:35
DX: S81.812D Laceration without foreign body, left lower leg, subsequent encounter (principal); I25.10 Atherosclerotic heart disease of native coronary artery without angina pectoris; I11.0 Hypertensive heart disease with heart failure; I50.9 Heart failure, unspecified; I25.2 Old myocardial infarction; J44.9 Chronic obstructive pulmonary disease, unspecified; E11.9 Type 2 diabetes mellitus without complications; G89.29 Other chronic pain; Z60.2 Problems related to living alone; Z79.899 Other long term (current) drug therapy; Z79.2 Long term (current) use of antibiotics; X58.XXXD Exposure to other specified factors, subsequent encounter
CPT/HCPCS: 99284

== ENCOUNTER 2022-04-09 19:18 | Emergency (ER) | payer MEDICARE, MEDICAID ==
[~2022-04-09] VITALS: Ht 193 cm; Wt 113.6 kg
[2022-04-09 19:34] VITALS: BP 129/81
== END 2022-04-09 21:14 | disposition left against medical advice (07) ==
LOC: ER 19:19
DX: R07.9 Chest pain, unspecified (principal); Z53.21 Procedure and treatment not carried out due to patient leaving prior to being seen by health care provider
CPT/HCPCS: 93005

== ENCOUNTER 2022-06-21 11:50 | Emergency (ER) | payer MEDICARE, MEDICAID ==
[~2022-06-21] VITALS: Ht 193 cm; Wt 113.6 kg
[2022-06-21 11:58] VITALS: BP 149/92
[2022-06-21] MEDS ORDERED: HYDROcodone/acetaminophen 10/325mg tab PO ONE (14:55)
[2022-06-21] MEDS ORDERED: HYDR-3965 PO (14:59)
== END 2022-06-21 16:04 | disposition home or self-care (01) ==
LOC: ER 11:50
DX: S66.511A Strain of intrinsic muscle, fascia and tendon of left index finger at wrist and hand level, initial encounter (principal); I11.0 Hypertensive heart disease with heart failure; I50.9 Heart failure, unspecified; J44.9 Chronic obstructive pulmonary disease, unspecified; E11.9 Type 2 diabetes mellitus without complications; G89.29 Other chronic pain; Z87.891 Personal history of nicotine dependence; X58.XXXA Exposure to other specified factors, initial encounter; Y93.89 Activity, other specified; Y92.89 Other specified places as the place of occurrence of the external cause; Y99.8 Other external cause status
CPT/HCPCS: 29130; 73130; 99283; A6449

== ENCOUNTER 2023-03-22 | Emergency (ER) | payer MEDICARE, MEDICAID ==
[~2023-03-22] VITALS: Ht 193 cm; Wt 118.2 kg
[~2023-03-22] MED LIST changes: -CEPH-585 PO
[2023-03-22 01:05] LABS: BASOPHILS # (AUTO) 0.1 X10'3 (0-0.2); BASOPHILS % (AUTO) 0.9 % (0-1); EOSINOPHILS # (AUTO) 0.2 X10'3 (0-0.9); EOSINOPHILS % (AUTO) 2.9 % (0-6); HEMATOCRIT 42.7 % (42.0-52.0); HEMOGLOBIN 14.4 g/dl (14.0-17.9); LYMPHOCYTES # (AUTO) 1.5 X10'3 (1.1-4.8); LYMPHOCYTES % (AUTO) 20.6 % (21-51); MEAN CORPUSCULAR HEMOGLOBIN 28.4 PG (27.0-31.0); MEAN CORPUSCULAR HGB CONC 33.7 g/dL (33.0-36.5); MEAN CORPUSCULAR VOLUME 84.1 FL (78-98); MEAN PLATELET VOLUME 8.4 FL (7.4-10.4); MONOCYTES # (AUTO) 0.6 X10'3 (0-0.9); MONOCYTES % (AUTO) 7.9 % (2-12); NEUTROPHILS % (AUTO) 67.7 % (42-75); PLATELET COUNT 245 X10'3 (140-440); RED BLOOD COUNT 5.08 X10'6 (4.70-6.10); RED CELL DISTRIBUTION WIDTH 15.1 % (11.5-14.5); WHITE BLOOD COUNT 7.3 X10'3 (4.5-11.0)
[2023-03-22 01:15] LABS: ALANINE AMINOTRANSFERASE 39 U/L (12-78); ALBUMIN 3.7 G/DL (3.4-5.0); ALBUMIN/GLOBULIN RATIO 1.2 (1.1-1.5); ALKALINE PHOSPHATASE 79 IU/L (46-116); ANION GAP 8 (8-16); ASPARTATE AMINO TRANSFERASE 23 U/L (10-37); BILIRUBIN,TOTAL 0.5 MG/DL (0.1-1.0); BLOOD UREA NITROGEN 29 MG/DL (7-18); BUN/CREATININE RATIO 19.7 (10.0-20.0); CALCIUM 8.8 MG/DL (8.5-10.1); CHLORIDE 105 MMOL/L (99-107); CREATININE 1.47 MG/DL (0.60-1.10); GLUCOSE 132 MG/DL (70-104); POTASSIUM 3.7 MMOL/L (3.5-5.1); SODIUM 143 MMOL/L (135-145); TOTAL PROTEIN 6.8 G/DL (6.4-8.2); eGFR 48 ML/MIN
[2023-03-22 01:22] LABS: CLARITY,URINE CLEAR (Clear); COLOR,URINE YELLOW (Yellow); GLUCOSE, URINE NEGATIVE (Neg); KETONES,URINE NEGATIVE (Neg); LEUKOCYTE ESTERASE ,URINE NEGATIVE (Neg); NITRITES, URINE NEGATIVE (Neg); OCCULT BLOOD,URINE NEGATIVE (Neg); PH,URINE 5.5 (4.8-8.0); PROTEIN,URINE NEGATIVE (Neg)
[2023-03-22 01:33] VITALS: BP 165/93
[2023-03-22 01:34] LABS: UA COLLECTION TYPE CLN CATCH MIDSTREAM
[2023-03-22] MEDS ORDERED: GABA-530 PO (01:44)
[2023-03-22] MEDS ORDERED: IBUP-1984 PO (01:44)
== END 2023-03-22 01:54 | disposition home or self-care (01) ==
LOC: ER
DX: M54.32 Sciatica, left side (principal); M54.31 Sciatica, right side; R19.7 Diarrhea, unspecified; I11.9 Hypertensive heart disease without heart failure; J44.9 Chronic obstructive pulmonary disease, unspecified; E11.9 Type 2 diabetes mellitus without complications; G89.29 Other chronic pain; Z79.899 Other long term (current) drug therapy
CPT/HCPCS: 36415; 80053; 81003; 85025; 99283

== ENCOUNTER 2023-12-15 12:12 | Inpatient (IN) | payer MEDICARE, MEDICAID ==
[~2023-12-15] VITALS: Ht 193 cm; Wt 123.0 kg
[~2023-12-15 12:12] MED LIST changes: +GABA-530 PO
[2023-12-15 13:13] LABS: BASOPHILS # (AUTO) 0.1 X10'3 (0-0.2); EOSINOPHILS # (AUTO) 0.1 X10'3 (0-0.9); HEMATOCRIT 44.8 % (42.0-52.0); HEMOGLOBIN 14.9 g/dl (14.0-17.9); LYMPHOCYTES # (AUTO) 1.1 X10'3 (1.1-4.8); LYMPHOCYTES % (AUTO) 13.7 % (21-51); MEAN CORPUSCULAR HEMOGLOBIN 28.1 PG (27.0-31.0); MEAN CORPUSCULAR HGB CONC 33.3 g/dL (33.0-36.5); MEAN CORPUSCULAR VOLUME 84.4 FL (78-98); MEAN PLATELET VOLUME 8.7 FL (7.4-10.4); MONOCYTES # (AUTO) 0.5 X10'3 (0-0.9); MONOCYTES % (AUTO) 6.3 % (2-12); NEUTROPHILS # (AUTO) 6.5 X10'3 (1.8-7.7); PLATELET COUNT 292 X10'3 (140-440); RED BLOOD COUNT 5.31 X10'6 (4.70-6.10); RED CELL DISTRIBUTION WIDTH 14.8 % (11.5-14.5); WHITE BLOOD COUNT 8.3 X10'3 (4.5-11.0)
[2023-12-15 13:33] LABS: ALBUMIN 3.4 G/DL (3.4-5.0); ANION GAP 8 (8-16); BLOOD UREA NITROGEN 21 MG/DL (7-18); BUN/CREATININE RATIO 16.3 (10.0-20.0); CALCIUM 8.5 MG/DL (8.5-10.1); CHLORIDE 104 MMOL/L (99-107); CREATININE 1.29 MG/DL (0.60-1.10); GLUCOSE 159 MG/DL (70-104); POTASSIUM 3.1 MMOL/L (3.5-5.1); PRO BRAIN NATRIURETIC PEPTIDE 55 PG/ML (0-125); SODIUM 143 MMOL/L (135-145); TOTAL CARBON DIOXIDE 31.2 MMOL/L (24-32); eCRCL 70 ML/MIN; eGFR 56 ML/MIN
[2023-12-15] MEDS: HYDROcodone/acetaminophen 10/325mg tab PO ONE (16:00)
[2023-12-15] MEDS: ibuprofen tablet 400 MG TABLET PO ONE (16:00)
[2023-12-15] MEDS: potassium Cl 20 mEq SR tablet PO STA (16:01)
[2023-12-15] MEDS: diltiazem 5mg/ml 5ml inj. IV ONE ×2 (17:17→19:34)
[2023-12-15] MEDS ORDERED: magnesium Cl slow-release 64mg tablet PO PRN (18:10)
[2023-12-15] MEDS ORDERED: potassium Cl 40MEQ/1/2NS 520ml 520 ML IV PRN (18:10)
[2023-12-15] MEDS ORDERED: ondansetron/PF 4mg/2ml inj IV PRN (18:10)
[2023-12-15] MEDS ORDERED: magnesium 4gm in 100ml NS 100 ML IV PRN (18:10)
[2023-12-15] MEDS ORDERED: potassium Cl 20 mEq SR tablet PO PRN ×2 (18:10)
[2023-12-15] MEDS ORDERED: magnesium 2GM in 50ml NS 50 ML IV PRN (18:10)
[2023-12-15] MEDS ORDERED: magnesium hydroxide 30ml (MOM) UD suspension PO PRN (18:10)
[2023-12-15] MEDS ORDERED: morphine 2 MG/ML inj. syringe IV PRN (18:10)
[2023-12-15] MEDS ORDERED: acetaminophen 325mg tablet PO PRN (18:10)
[2023-12-15] MEDS ORDERED: mag hydrox/Alum hydrox/simeth 30ml oral suspension PO PRN (18:10)
[2023-12-15 18:30] VITALS: BP 124/86; PULSE 90; RESP 12; TEMP 97.9
[2023-12-15] MEDS ORDERED: glucagon, human recombinant 1mg kit SUBCUT PRN (18:45)
[2023-12-15] MEDS ORDERED: DEXTROSE 15 GM of carb/4 tabs (each vial/BOTTLE has 4 tablets) PO PRN ×2 (18:45)
[2023-12-15] MEDS ORDERED: dextrose 50%-water 50ml dispensing syringe IV PRN ×2 (18:45)
[2023-12-15] MEDS ORDERED: insulin Lispro (HumaLOG) vial - multi-dose SQ SCH (18:45)
[2023-12-15] MEDS: MESSAGE TO PHARMACY PO ONE (18:52)
[2023-12-15] MEDS: diltiazem CD 120mg capsule (once-daily) PO SCH (19:14)
[2023-12-15] MEDS: apixaban 5mg tablet PO SCH (19:14)
[2023-12-15 19:24] LABS: HEMOGLOBIN A1C 6.5 % (4.5-6.2)
[2023-12-15] MEDS ORDERED: HYDROcodone/acetaminophen 10/325mg tab PO PRN (20:00)
[2023-12-15] MEDS: K and/or MAG REPLACEMENT MC SCH (20:00)
[2023-12-15] MEDS ORDERED: insulin glargine (Lantus) pen - multi-dose SQ SCH (21:00)
== END 2023-12-15 22:18 | disposition left against medical advice (07) | DRG 641 ==
LOC: ER 12:12 → ED HOLD 18:14
PROVIDERS: ADMIT Internal Medicine; ATTEND Internal Medicine
DX: E87.6 Hypokalemia (principal); I13.0 Hypertensive heart and chronic kidney disease with heart failure and stage 1 through stage 4 chronic kidney disease, or unspecified chronic kidney disease; K57.92 Diverticulitis of intestine, part unspecified, without perforation or abscess without bleeding; I48.92 Unspecified atrial flutter; I48.91 Unspecified atrial fibrillation; I25.10 Atherosclerotic heart disease of native coronary artery without angina pectoris; N18.9 Chronic kidney disease, unspecified; J44.9 Chronic obstructive pulmonary disease, unspecified; E11.22 Type 2 diabetes mellitus with diabetic chronic kidney disease; Z53.21 Procedure and treatment not carried out due to patient leaving prior to being seen by health care provider; M54.2 Cervicalgia; M79.602 Pain in left arm; G89.4 Chronic pain syndrome; I50.9 Heart failure, unspecified; I25.2 Old myocardial infarction; Z79.899 Other long term (current) drug therapy; Z98.84 Bariatric surgery status
CPT/HCPCS: 36415; 71045; 72125; 80048; 83036; 83880; 84484; 85025; 93005; 99285; G0378; J1815; J3490

== ENCOUNTER 2024-08-28 09:00 | Emergency (ER) | payer MEDICARE, MEDICAID ==
[~2024-08-28] VITALS: Ht 193 cm; Wt 120.2 kg
[2024-08-28 09:11] VITALS: BP 138/75; PULSE 72; TEMP 97.8; O2SAT 97
[2024-08-28 10:22] VITALS: RESP 18
== END 2024-08-28 10:24 | disposition home or self-care (01) ==
LOC: ER 09:01
DX: S92.531A Displaced fracture of distal phalanx of right lesser toe(s), initial encounter for closed fracture (principal); S90.121A Contusion of right lesser toe(s) without damage to nail, initial encounter; I48.91 Unspecified atrial fibrillation; I25.10 Atherosclerotic heart disease of native coronary artery without angina pectoris; I25.2 Old myocardial infarction; J44.9 Chronic obstructive pulmonary disease, unspecified; I11.0 Hypertensive heart disease with heart failure; I50.9 Heart failure, unspecified; E11.9 Type 2 diabetes mellitus without complications; G89.29 Other chronic pain; Z98.890 Other specified postprocedural states; Z60.2 Problems related to living alone; Z79.899 Other long term (current) drug therapy; W22.8XXA Striking against or struck by other objects, initial encounter; Y93.89 Activity, other specified; Y92.89 Other specified places as the place of occurrence of the external cause; Y99.8 Other external cause status
CPT/HCPCS: 73660; 99283; L4360

== ENCOUNTER 2024-09-16 13:45 | Emergency (ER) | payer MEDICARE, MEDICAID ==
[~2024-09-16] VITALS: Ht 193 cm; Wt 93.6 kg
[2024-09-16 14:05] VITALS: TEMP 98.6
[2024-09-16] MEDS ORDERED: METH-798 PO (17:36)
[2024-09-16 17:58] VITALS: BP 128/71; PULSE 78; RESP 16; O2SAT 98
== END 2024-09-16 18:00 | disposition home or self-care (01) ==
LOC: ER 13:46
DX: M54.2 Cervicalgia (principal); M54.89 Other dorsalgia; I11.0 Hypertensive heart disease with heart failure; I50.9 Heart failure, unspecified; I25.2 Old myocardial infarction; I25.10 Atherosclerotic heart disease of native coronary artery without angina pectoris; E11.9 Type 2 diabetes mellitus without complications; J44.9 Chronic obstructive pulmonary disease, unspecified; I48.91 Unspecified atrial fibrillation; G89.29 Other chronic pain; Z98.890 Other specified postprocedural states; Z79.899 Other long term (current) drug therapy; V99.XXXA Unspecified transport accident, initial encounter; Y93.89 Activity, other specified; Y92.89 Other specified places as the place of occurrence of the external cause; Y99.8 Other external cause status
CPT/HCPCS: 70450; 71250; 73030; 99284

== ENCOUNTER 2024-10-16 12:06 | Outpatient (CLI) | payer MEDICARE, MEDICAID ==
[~2024-10-16 12:06] MED LIST changes: +METH-798 PO
== END 2024-10-16 23:59 | disposition home or self-care (01) ==
LOC: MRI02 12:06
PROVIDERS: ATTEND Physician Assistant Surgical
DX: M47.26 Other spondylosis with radiculopathy, lumbar region (principal); M51.16 Intervertebral disc disorders with radiculopathy, lumbar region; M48.062 Spinal stenosis, lumbar region with neurogenic claudication; M47.812 Spondylosis without myelopathy or radiculopathy, cervical region; M48.02 Spinal stenosis, cervical region; M25.78 Osteophyte, vertebrae; M54.50 Low back pain, unspecified; M54.2 Cervicalgia; G96.191 Perineural cyst
CPT/HCPCS: 72141; 72148

== ENCOUNTER 2025-02-21 20:06 | Emergency (ER) | payer MEDICARE, MEDICAID ==
[~2025-02-21] VITALS: Ht 193 cm; Wt 115.9 kg
[~2025-02-21 20:06] MED LIST changes: -FLO0.4C PO; +TAMS-55 PO
[2025-02-21 20:09] VITALS: TEMP 97.7
[2025-02-21 21:22] LABS: BASOPHILS # (AUTO) 0.1 X10'3 (0-0.2); BASOPHILS % (AUTO) 0.8 % (0-1); EOSINOPHILS # (AUTO) 0.2 X10'3 (0-0.9); EOSINOPHILS % (AUTO) 1.7 % (0-6); HEMATOCRIT 44.7 % (42.0-52.0); HEMOGLOBIN 15.5 g/dl (14.0-17.9); LYMPHOCYTES # (AUTO) 1.8 X10'3 (1.1-4.8); MEAN CORPUSCULAR HEMOGLOBIN 29.6 PG (27.0-31.0); MEAN CORPUSCULAR HGB CONC 34.7 g/dL (33.0-36.5); MEAN CORPUSCULAR VOLUME 85.2 FL (78-98); MONOCYTES # (AUTO) 0.6 X10'3 (0-0.9); MONOCYTES % (AUTO) 6.9 % (2-12); NEUTROPHILS # (AUTO) 6.3 X10'3 (1.8-7.7); NEUTROPHILS % (AUTO) 70.6 % (42-75); PLATELET COUNT 255 X10'3 (140-440); RED BLOOD COUNT 5.25 X10'6 (4.70-6.10); RED CELL DISTRIBUTION WIDTH 14.6 % (11.5-14.5)
[2025-02-21 21:40] LABS: ALANINE AMINOTRANSFERASE 53 U/L (12-78); ALBUMIN 3.7 G/DL (3.4-5.0); ALBUMIN/GLOBULIN RATIO 1.1 (1.1-1.5); ALKALINE PHOSPHATASE 87 IU/L (46-116); ANION GAP 6 (8-16); ASPARTATE AMINO TRANSFERASE 23 U/L (10-37); BILIRUBIN,TOTAL 0.9 MG/DL (0.1-1.0); BLOOD UREA NITROGEN 22 MG/DL (7-18); BUN/CREATININE RATIO 19.3 (10.0-20.0); CHLORIDE 101 MMOL/L (99-107); CREATININE 1.14 MG/DL (0.60-1.10); GLUCOSE 204 MG/DL (70-104); LIPASE 63 U/L (16-77); POTASSIUM 3.4 MMOL/L (3.5-5.1); SODIUM 140 MMOL/L (135-145); TOTAL CARBON DIOXIDE 33.4 MMOL/L (24-32); TOTAL PROTEIN 7.1 G/DL (6.4-8.2); eCRCL 78 ML/MIN; eGFR 64 ML/MIN
[2025-02-21 21:59] LABS: BILIRUBIN,URINE NEGATIVE (Neg); CLARITY,URINE CLEAR (Clear); COLOR,URINE YELLOW (Yellow); GLUCOSE, URINE 250 mg/dl (Neg); KETONES,URINE NEGATIVE (Neg); LEUKOCYTE ESTERASE ,URINE NEGATIVE (Neg); NITRITES, URINE NEGATIVE (Neg); OCCULT BLOOD,URINE NEGATIVE (Neg); PROTEIN,URINE NEGATIVE (Neg)
[2025-02-21 22:03] LABS: UA COLLECTION TYPE CLN CATCH MIDSTREAM
--- NOTE | 2025-02-22 00:11 | Physician Documentation ---
History of Present Illness Chief Complaint: Flank Pain Stated Complaint: BACK PAIN Primary Medical Doctor: PABLO SALAZAR, Dr. Garrett-cardio HPI This is a 64-year-old male who presents with bilateral flank pain progressively worsening over the past 3-4 days, patient reports was difficult for him to lay flat, patient additionally reports that since symptoms have began he has had urinary frequency without dysuria. Patient does report an episode of urinary incontinence earlier today described as I looked down it was just flowing out. Patient reports no new or progressively worsening numbness or weakness to his legs and no saddle paresthesia. Patient reports no fever or abdominal pain. Patient reports no other acute symptoms or concerns.. Additional note by Cheikh Mcneill DO: I took over the care of this patient from previous physician. I reviewed any previous notes available, obtain my own history, review of systems and physical examination was performed by myself. The gentleman confirms the story above. Does report the pain is sharp, nonradiating, not migratory, not ripping, not tearing. Never experienced anything similar. No palliating or aggravating factors. No concern for tobacco, alcohol or illicit substances Medication Reconciliation Allergies: Coded Allergies: No Known Allergies (Unverified , 02/21/25) Scheduled Amlodipine Besylate (Amlodipine Besylate), 5 MG PO HS, (Reported) Atorvastatin Calcium (Atorvastatin Calcium), 1 TAB PO DAILY, (Reported) Chlorthalidone (Chlorthalidone), 25 MG PO DAILY, (Reported) Cholecalciferol (Vitamin D), 5 CAP PO DAILY, (Reported) Cyanocobalamin (Vitamin B-12) (B-12), 5,000 MCG PO DAILY, (Reported) Diltiazem Hcl (Cartia Xt), 120 MG PO DAILY, (Reported) Gabapentin (Gabapentin), 1 CAP PO Q8H Levothyroxine Sodium (Synthroid), 0.137 MG PO DAILY, (Reported) Lisinopril* (Lisinopril*), 0.5 TAB PO DAILY, (Reported) Methocarbamol (Methocarbamol), 1 TAB PO Q8H Metoprolol Succinate* (Toprol Xl*), 1 TAB PO QPM, (Reported) Rosuvastatin Calcium* (Crestor*), 1 TAB PO QPM, (Reported) Tamsulosin Hcl* (Flomax*), 1 CAP PO BID, (Reported) Scheduled PRN Hydrocodone Bit/Acetaminophen ([place] 10-325 Tablet), 1 TAB PO Q8H PRN for P, (Reported) Omeprazole (Prilosec), 40 MG PO DAILY PRN for indigestion/dyspepsia, (Reported) Past Medical History Past Medical History: Arrhythmia, Atrial Fibrillation, Coronary Artery Disease, Congestive Heart Failure, Hypertension, Myocardial Infarction, COPD, Diverticulitis, Diverticulosis, Hernia, Renal Disease, Diabetes, Chronic Pain Past Surgical History: abdominal surgery, gastric bypass, orthopedic surgeries, other Other Past Surgical History: ablation, hernia repair x3 Alcohol Use: None Drug Use: none Lives with: Alone Lives In: Home Occupation: disabled Review of Systems ROS 10 point review of systems was performed and unless noted above in HPI is negative for acute process/complaint. Physical Exam Vital Signs: Temperature: 97.7, Source: Oral, Heart Rate: 72, Respiratory Rate: 18, BP: 129/78, Pulse Oximetry: 97, Weight: 115.910 Physical Exam GENERAL: Awake, alert, oriented, GCS 15, no apparent distress, non-toxic appearing, answers questions, follows commands appropriately. HEENT: Atraumatic, normocephalic, pupils equal, extraocular muscles intact, sclerae anicteric, mucus membranes moist, oropharynx is clear, no stridor. NECK: supple, full active range of motion, trachea midline, no thyromegaly, no lymphadenopathy, no JVD. CARDIOVASCULAR: regular rate/rhythm, no murmurs/gallops/rubs, Pulses are 2+ in all extremities and symmetric. Capillary refill less than 2 seconds. PULMONARY: Nonlabored, good air movement ,no respiratory distress, speaking in full sentences, clear to auscultation bilaterally, no wheezing, no ronchi, no rales, no accessory muscle use. GASTROINTESTINAL: Soft, non-tender, non-distended, normal active bowel sounds, no organomegaly, no pulsatile masses, no CVA tenderness. NEUROLOGIC: Lucid with normal mental status. Normal facial symmetry. Moves all extremities symmetrically and with purpose. No truncal ataxia. Speech is fluid without evidence of dysarthria or aphasia, no focal deficits appreciated. MUSCULOSKELETAL: There is full range of motion of all extremities. There is no joint pain or joint swelling or joint erythema. There is no muscle pain or tenderness or swelling. EXTREMITIES: warm, well-perfused, no cyanosis, no clubbing, no edema, no acute deformities. Skin: warm, dry, no rashes or lesions, no jaundice, no petechiae orpurpura. No ecchymosis. PSYCHIATRIC: Normal affect, normal insight, normal concentration. Focused exam: [] Progress Results/Orders Results/Orders Vital Signs 02/21/25 20:09 Temp 97.7 Pulse 72 Resp 18 B/P (MAP) 129/78 Pulse Ox 97 Laboratory Tests Test 02/21/25 20:34 02/21/25 21:34 White Blood Count 9.0 Red Blood Count 5.25 Hemoglobin 15.5 Hematocrit 44.7 Mean Corpuscular Volume 85.2 Mean Corpuscular Hemoglobin 29.6 Mean Corpuscular Hemoglobin Concent 34.7 Red Cell Distribution Width 14.6 H Platelet Count 255 Mean Platelet Volume 9.0 Neutrophils (%) (Auto) 70.6 Lymphocytes (%) (Auto) 20.0 L Monocytes (%) (Auto) 6.9 Eosinophils (%) (Auto) 1.7 Basophils (%) (Auto) 0.8 Neutrophils # (Auto) 6.3 Lymphocytes # (Auto) 1.8 Monocytes # (Auto) 0.6 Eosinophils # (Auto) 0.2 Basophils # (Auto) 0.1 CBC Comment Sodium Level 140 Potassium Level 3.4 L Chloride Level 101 Carbon Dioxide Level 33.4 H Anion Gap 6 L Blood Urea Nitrogen 22 H Creatinine 1.14 H Estimated GFR/1.73 m2 64 BUN/Creatinine Ratio 19.3 Glucose Level 204 H Calcium Level 9.0 Total Bilirubin 0.9 Aspartate Amino Transf (AST/SGOT) 23 Alanine Aminotransferase (ALT/SGPT) 53 Alkaline Phosphatase 87 Total Protein 7.1 Albumin 3.7 Globulin 3.4 Albumin/Globulin Ratio 1.1 Lipase 63 Chemistry Comments Urine Specimen Description Cln catch midstream Urine Color Yellow Urine Clarity Clear Urine pH 6.0 Urine Specific [place] 1.025 Urine Protein Negative Urine Glucose (UA) 250 H Urine Ketones Negative Urine Occult Blood Negative Urine Nitrite Negative Urine Bilirubin Negative Urine Urobilinogen 4.0 H Urine Leukocyte Esterase Negative Urine Culture Indicated Not ind Volume Urine Centrifuged 10 ml Urine Comment Medical Decision Making Findings MSE performed in triage and patient returned to ED lobby by nursing staff to await available ED room Additional note by Cheikh Schulack, DO: I took over the care of this patient from previous physician. I reviewed any previous notes available, obtain my own history, review of systems and physical examination was performed by myself. Facility Status: ED [facility], [facility] process The plan was discussed with the patient, who demonstrates clear understanding of the plan and is in agreement with the plan unless otherwise noted in the chart. All questions have been answered, all concerns were addressed unless otherwise documented. I was available throughout their ED stay for frequent reassessment and questions. Differential Diagnoses (considered and possible or likely): [Differential includes but not limited to urinary tract infection, pyelitis, pyelonephritis, kidney stones, low back pain secondary to muscle spasm, less likely radiculopathy, sciatica, less likely cauda equina or conus medullaris as he is currently asymptomatic, epidural hematoma and epidural abscess has been considerably he has not risk factors. Less likely acute intra-abdominal process such as acute appendicitis, acute cholecystitis, pancreatitis, gastritis, PUD, diverticulitis, mesenteric ischemia, abdominal aortic aneurysm, bowel obstruction, enteritis, colitis, fecal impaction, volvulus, IBS, inflammatory bowel disease, specific food intolerance, peritonitis, perforated viscous, malignancy, UTI, abscess, and abdominal pain NOS. History, physical exam, and workup exclude many of the more serious causes listed above. ??Differential Diagnoses (considered and unlikely, not requiring evaluation currently): [] MDM Data Please see [facility] for the following: Independent Historians and external Records Review. Historian: [Patient] Independent Historians: ?[None] Medication Management: [Reviewed medication list] Social History and determinants: [Reviewed] Please see the body of the note for the following: Any independent interpretations of ECG, imaging studies. All vitals signs/haemodynamics, ordered tests were independently reviewed and interpreted by myself. Nursing triage complaint and vitals reviewed, additional nursing notes were reviewed as available and I agree unless otherwise noted or documented in contradiction in the chart Vital Signs: Independently reviewed Labs: Independently interpreted Imaging: Independently interpreted Old Medical Records: Independently reviewed, see [facility] for relevant summary and information Pulse Oximetry: [98%] interpreted as [normal on room air] by me [Chief Drafter: [Regular Rate, Regular rhythm, no ectopy, NSR] reviewed and interpreted by me] Additionally notably showing: [Hemodynamics reviewed. The patient was not febrile, not tachycardic, no evidence of hypotension respiratory distress. CBC normal metabolic panel notable for elevated glucose of 204, dehydration, UA is nondiagnostic for UTI.] Tests considered but not ordered include: [Not applicable] Social Determinants of Health Impact: Patient was evaluated in [facility], [facility] [place] to healthcare due to below par ratio of patient to medical providers. [] Comorbid Conditions Impacting Present Evaluation and Care/Treatment: [Diabetes, AFib,] Management Discussions with other Healthcare Providers: [] Treatment and Disposition Medication Management (Given or considered): []. See EMR for details Consideration for Hospitalization/Escalation/Deescalation of Care: Admission for observation has been considered, [however the patient is able to tolerate p.o., their symptoms are controlled, they are able to rely on oral medications, and their chief complaint/diagnosis can be managed on outpatient basis.] ?ED Course:?[Unfortunately the CT showed a a 4 cm retroperitoneal mass concerning for malignancy. No evidence of spinal canal stenosis] ?Shared decision making:?[Patient is hemodynamically stable for discharge home with follow with their primary care provider. [Patient was informed that he must have a PET scan and a CT-guided biopsy of his lesion soon as possible. Unfortunately this facility does not have intervention radiology. ] Specific and cautious return precautions provided and discussed with full understanding. Any incidental findings were also discussed and follow up recommendations given. [] All questions answered. Patient/family were able to verbalize back return precautions. Patient/family agree to plan. Copies of imaging and laboratory studies were provided.] Code status:?FULL Please see the full Electronic Medical Record for full details of nursing documentation, medications list, other records of complete past medical history and conditions, vital signs, laboratory studies, and any radiologic study interpretations by radiologists. Portions of this note were completed using [employer] dictation software and as a result there may exist minor errors in spelling. I have reviewed elements of past family and social history and agree as included in note. Departure Disposition: 01 HOME / SELF CARE / HOMELESS Impression: Primary Impression: Bilateral flank pain Additional Impression: Retroperitoneal mass Condition: Stable Discharge Instructions: Flank Pain, Adult Additional Instructions: There is no obvious explanation for your symptoms today. However, unfortunately the CT showed a 4 cm mass that is concerning for cancer. You need to follow-up with your primary care provider responsible to be referred for a PET scan, as well as interventional radiology procedure to determine the true nature of the mass such as CT-guided biopsy. Failure to follow-up in urgent manner may result in potential misdiagnosis of cancer and untimely . Referrals: NO PRIMARY CARE PROVIDER (PCP) Education Educated: Patient Educated regarding: diagnosis, treatment, prognosis, need for follow up Signature Scribe Signature: No scribe Attestation: This note accurately reflects clinical decisions, work performed by myself, DO GILLES Torres [facility] February 22, 2025 00:11 CHEIKH MCNEILL DO February 22, 2025 01:24
[2025-02-22 01:14] VITALS: BP 121/78; PULSE 66; RESP 16; O2SAT 98
[2025-02-22] MEDS ORDERED: iohexol 300mg/ml 100ml inj. ONE (01:30)
--- NOTE | 2025-02-22 02:32 | RADIOLOGY REPORT ---
Clinical History Flank pain, URINARY INCONTINENCE, BACK PAIN, PLEASE EVAL L SPINE Comparison None Technique: All CT scans at this medical facility are performed using dose modulation techniques as appropriate t o a performed exam including the following: Automated exposure control was utilized; adjustment of th e mA and/or kV according to patient size; and use of iterative reconstruction technique. All CT studies are reported to the Dose Index Registry of the [employer]. Contrast: OMNIPAQUE 300, 100ML Radiation Dose: CTDI (mGy): 35.55; DLP (mGy-cm): 1850.36 HECTOR INTERIANO, [id number] FINDINGS: Lower chest: Coronary atherosclerotic disease. 2.5 mm right basilar calcified pulmonary granuloma. Bibasilar atelectasis Liver: Diffuse hepatic fatty infiltration Gallbladder: Unremarkable Pancreas: Diffuse pancreatic fatty infiltration and atrophy Spleen: Unremarkable Adrenals:Unremarkable Kidneys: Bilateral renal cysts Stomach: Postsurgical changes related to gastric sleeve surgery with small gastric hiatus hernia. Sma ll right paramedian infraumbilical small bowel containing hernia is detected with its neck measuring 3.7 cm and its sac measuring 1.3 x 4 cm no evidence of obstruction. Bowel:Evaluation of the bowel is limited and incomplete due to lack of oral contrast. The small nabil l is grossly unremarkable. Diverticulosis of the colon with no evidence of acute diverticulitis. No rmal appendix Urinary bladder:Unremarkable Reproductive organs:No pelvic masses Peritoneum, retroperitoneum, lymphadenopathy: 4.3 x 3.2 cm retroperitoneal heterogeneous soft tissue mass is seen parallel to the left common iliac artery concerning for malignancy Vascular structures: Atherosclerotic vascular calcification Abdominal wall: Anterior abdominal hernia repair with a mesh seen in place. Small right paramedian i nfraumbilical small bowel containing hernia is detected with its neck measuring 3.7 cm and its sac me asuring 1.3 x 4 cm no evidence of obstruction. Musculoskeletal:No acute osseous abnormality. The vertebral height and alignment are maintained. Mi nimum degenerative changes of lumbar spines with tiny marginal osteophytosis. The intervertebral dis cs are unremarkableand canal stenosis or neuroforaminal narrowing IMPRESSION: 4.3 x 3.2 cm retroperitoneal heterogeneous soft tissue mass is seen parallel to the left common iliac artery concerning for malignancy. Correlation with imaging guidance biopsy and tissue pathology is recommended Diverticulosis of the colon with no evidence of acute diverticulitis. No evidence of degenerative disc disease, disc herniation, spinal canal stenosis or neuroforaminal na rrowing This report was electronically signed by Veda Austin MD on 02/22/2025 2:28:53 AM.
== END 2025-02-22 03:28 | disposition home or self-care (01) ==
LOC: ER 20:07
DX: R19.09 Other intra-abdominal and pelvic swelling, mass and lump (principal); E11.9 Type 2 diabetes mellitus without complications; I11.0 Hypertensive heart disease with heart failure; I50.9 Heart failure, unspecified; I25.10 Atherosclerotic heart disease of native coronary artery without angina pectoris; I48.91 Unspecified atrial fibrillation; J44.9 Chronic obstructive pulmonary disease, unspecified; Z98.84 Bariatric surgery status; Z98.890 Other specified postprocedural states
CPT/HCPCS: 36415; 74177; 80053; 81003; 83690; 85025; 99285; Q9967

== ENCOUNTER 2025-03-11 12:32 | Outpatient (CLI) | payer MEDICARE, MEDICAID ==
--- NOTE | 2025-03-11 16:42 | RADIOLOGY REPORT ---
EXAM: MR MRI UPPER EXTREMITY LEFT INDICATION: PAIN IN LEFT ELBOW TECHNIQUE: Multisequence, multiplanar MRI of the left elbow was performed in the absence of gadoliniu m contrast material. COMPARISON: None FINDINGS: [MEDIAL ELBOW]: Intact ulnar collateral ligament. Intact common flexor tendon group. [ANTERIOR ELBOW]: Intact biceps and brachialis tendon attachments. No interosseous or bicipital radia l bursal distention to suggest bursitis. [LATERAL ELBOW]: Intact radial collateral, lateral ulnar collateral, and annular ligaments. Abnormal thickening of the common extensor tendon origin with asymmetric adjacent radial capitellar fluid. Que stion undersurface tearing and subsequent sequelae of lateral epicondylitis with the adjacent small o ssicle. This corresponds with the area of indicated pain. [POSTERIOR ELBOW]: Intact triceps tendon insertion. [JOINT SPACE]: No elbow joint effusion. No measurable cartilage defect. [BONES]: Normal. [MUSCLES]: Normal. [NEUROVASCULAR]: At the cubital tunnel, normal signal intensity and morphology of the traversing ulna r nerve. The overlying cubital tunnel retinaculum is intact. Intact radial and median neurovascular b undles. IMPRESSION: 1. Abnormal thickening of the common extensor tendon origin with asymmetric adjacent radial capitella r fluid. Question undersurface tearing and subsequent sequelae of lateral epicondylitis with the shen cent small ossicle.
== END 2025-03-11 23:59 | disposition home or self-care (01) ==
LOC: MRI02 12:32
PROVIDERS: ATTEND Anesthesiology Pain Medicine
DX: M25.522 Pain in left elbow (principal); G56.22 Lesion of ulnar nerve, left upper limb
CPT/HCPCS: 73221

== ENCOUNTER 2025-03-11 14:19 | Emergency (ER) | payer MEDICARE, MEDICAID ==
[~2025-03-11] VITALS: Ht 193 cm; Wt 121.0 kg
--- NOTE | 2025-03-11 14:38 | Physician Documentation ---
History of Present Illness ~ Chief Complaint: Palpitations Stated Complaint: SOB DIZZINESS POSS AFIB Time Seen by MD: 16:15 Primary Medical Doctor: Dr. Tami SKELTON-cardio HPI 64 year old male with history of afib reports that he was experiencing dizziness, palpitations, and shortness of breath today for several hours prior to evaluation. He denies chest pain, fevers, N/V/D. He has been on blood thinners for atrial fibrillation but denies TN. Patient presents to the emergency room after feeling some palpitations or feeling funny in his chest today while getting a MRI in his upper extremity to evaluate elbow pain. Since he was here he felt he would be evaluated. No current palpitations. 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 Currently wearing a loop recorder. He reports no new medications. While getting up to go get his chest x-ray he did have a syncopal episode landing on his buttocks with no head strike. He does take blood thinners. He denies chest pain Medication Reconciliation Allergies: Coded Allergies: No Known Allergies (Unverified , 03/11/25) Scheduled Amlodipine Besylate (Amlodipine Besylate), 5 MG PO HS, (Reported) Atorvastatin Calcium (Atorvastatin Calcium), 1 TAB PO DAILY, (Reported) Chlorthalidone (Chlorthalidone), 25 MG PO DAILY, (Reported) Cholecalciferol (Vitamin D), 5 CAP PO DAILY, (Reported) Cyanocobalamin (Vitamin B-12) (B-12), 5,000 MCG PO DAILY, (Reported) Diltiazem Hcl (Cartia Xt), 120 MG PO DAILY, (Reported) Gabapentin (Gabapentin), 1 CAP PO Q8H Levothyroxine Sodium (Synthroid), 0.137 MG PO DAILY, (Reported) Lisinopril* (Lisinopril*), 0.5 TAB PO DAILY, (Reported) Methocarbamol (Methocarbamol), 1 TAB PO Q8H Metoprolol Succinate* (Toprol Xl*), 1 TAB PO QPM, (Reported) Rosuvastatin Calcium* (Crestor*), 1 TAB PO QPM, (Reported) Tamsulosin Hcl* (Flomax*), 1 CAP PO BID, (Reported) Scheduled PRN Hydrocodone Bit/Acetaminophen ([place] 10-325 Tablet), 1 TAB PO Q8H PRN for P, (Reported) Omeprazole (Prilosec), 40 MG PO DAILY PRN for indigestion/dyspepsia, (Reported) Past Medical History Past Medical History: Arrhythmia, Atrial Fibrillation, Coronary Artery Disease, Congestive Heart Failure, Hypertension, Myocardial Infarction, COPD, Diverticulitis, Diverticulosis, Hernia, Renal Disease, Diabetes, Chronic Pain Past Surgical History: abdominal surgery, gastric bypass, orthopedic surgeries, other Other Past Surgical History: ablation, hernia repair x3 Alcohol Use: None Drug Use: none Lives with: Alone Lives In: Home Occupation: disabled Review of Systems All Other Systems at this time: Reviewed and Negative ROS All review of systems negative except as per HPI Physical Exam Vital Signs: RN Vital Signs have been reviewed: Yes, Temperature: 97.8, Source: Temporal, Heart Rate: 101, Respiratory Rate: 18, BP: 100/55, Pulse Oximetry: 95, Weight: 121.000 Physical Exam General: Patient is awake, alert, oriented x4 in no acute distress Head: Normocephalic and atraumatic. Eyes: Conjunctival normal. EOMI. PERRL. ENT: Mucous membranes moist. Neck: Supple, trachea is midline. Chest: Clear to auscultation bilaterally without rales, rhonchi, or wheezes. There is no accessory muscle use or retractions. Cardiac: RRR without murmurs, gallops, or rubs. Abd: Soft, nondistended, nontender, with normoactive bowel sounds. No guarding, rebound, or rigidity. Extremities: Normal strength. Normal range of motion. No deformities or edema. No calf tenderness to palpation Progress Results/Orders Results/Orders Orders - KIRILL DENT MD General Nursing Order (03/11/25 18:31) Ct Pelvis (03/11/25 19:24) Completed Orders - KIRILL DENT MD Normal Saline 1000ml (Sodium Chloride 10 (03/11/25 18:35) Ct Pelvis (03/11/25 19:24) Medications Received in ER Medications (Trade) Dose Ordered Sig/Amalia Route PRN Reason Start Time Stop Time Status Last Admin Dose Admin Sodium Chloride 1,000 ml @ 1,000 mls/hr ONCE ONCE IV 03/11/25 18:35 03/11/25 19:34 DC 03/11/25 19:01 1,000 MLS/HR Vital Signs 03/11/25 03/11/25 03/11/25 03/11/25 14:32 15:58 16:04 17:00 Temp 97.8 Pulse 101 86 76 Resp 18 20 17 11 B/P (MAP) 100/55 107/69 (82) 107/69 (82) Pulse Ox 95 96 93 O2 Flow Rate 0 0 03/11/25 03/11/25 03/11/25 03/11/25 17:58 18:50 18:51 19:04 Pulse 75 76 78 70 87 Resp 12 18 16 B/P (MAP) 120/75 (90) 130/79 133/82 (99) 137/83 122/77 Pulse Ox 92 98 O2 Flow Rate 0 0 03/11/25 20:07 Pulse 72 Resp 16 B/P (MAP) 130/74 (92) Pulse Ox 97 O2 Flow Rate 0 Laboratory Tests Test 03/11/25 14:27 03/11/25 16:35 03/11/25 17:31 03/11/25 19:00 White Blood Count 10.5 Red Blood Count 5.32 Hemoglobin 15.3 Hematocrit 45.5 Mean Corpuscular Volume 85.6 Mean Corpuscular Hemoglobin 28.7 Mean Corpuscular Hemoglobin Concent 33.5 Red Cell Distribution Width 14.0 Platelet Count 290 Mean Platelet Volume 8.9 Neutrophils (%) (Auto) 75.2 H Lymphocytes (%) (Auto) 17.2 L Monocytes (%) (Auto) 6.4 Eosinophils (%) (Auto) 0.9 Basophils (%) (Auto) 0.3 Neutrophils # (Auto) 7.9 H Lymphocytes # (Auto) 1.8 Monocytes # (Auto) 0.7 Eosinophils # (Auto) 0.1 Basophils # (Auto) 0.0 CBC Comment Sodium Level 143 Potassium Level 4.0 Chloride Level 106 Carbon Dioxide Level 25.6 Anion Gap 11 Blood Urea Nitrogen 37 H Creatinine 1.81 H Estimated GFR/1.73 m2 38 BUN/Creatinine Ratio 20.4 H Glucose Level 204 H Calcium Level 8.9 Troponin I High Sensitivity 19 17 19 Pro-B-Type Natriuretic Peptide 115 Albumin 3.8 Chemistry Comments Troponin I High Sens Percent Delta 10 11 Troponin I Hi Sens Absolute Change -2 2 Urine Specimen Description Cln catch midstream Urine Color Yellow Urine Clarity Clear Urine pH 5.5 Urine Specific [place] >=1.030 Urine Protein 30 H Urine Glucose (UA) Negative Urine Ketones 15 H Urine Occult Blood Negative Urine Nitrite Negative Urine Bilirubin Small Urine Urobilinogen 2.0 H Urine Leukocyte Esterase Negative Urine RBC 0-2 Urine WBC 0-4 Urine Squamous Epithelial Cells None seen Urine Bacteria None seen Urine Hyaline Casts 3-5 Urine Mucus Few Urine Culture Indicated Not ind Volume Urine Centrifuged 10 ml Urine Comment EKG/XRAY/CT/US/VASC/MRI EKG : Additional Comment EKG interpreted by myself shows time of 14 19, rate 112, sinus tachycardia, right axis deviation, no ST changes Chest X-Ray : Additional Comments Exam: CHEST,SINGLE VIEW CHEST RADIOGRAPH Indication: CP Technique: Single frontal view of the chest was obtained Comparison: DI CHEST,SINGLE VIEW on DOS: 12/15/23 FINDINGS: Lines and Tubes: None Lungs: No focal consolidation. Pleura: No effusion. No pneumothorax. Cardiomediastinal contours: Unremarkable Bones: No acute osseous abnormality. IMPRESSION: No acute cardiopulmonary disease. Medical Decision Making Findings 64 year old male with shortness of breath and palpitations as above. Workup and exam has initially been benign with no acute findings, including an EKG which as demonstrated by my interpretation not afib but sinus tachycardia with widened QRS but no STEMI criteria nor dysrhythmia. His CXR by my interpretation demonstrated no pulmonary edema, pneumonia, nor PTX. His troponins have been negative x 2 and I am signing him over to the oncoming ER physician for further workup. During the course of his ED stay while in the xray suite to obtain his CXR he was noted to syncopize and fall on the ground, subsequently regaining consciousness and complaining of a headache and right buttock pain. I will add on CT head as he is on blood thinners as part of his workup. He has been stable during his ED stay with me. Assume care of patient. He has received IV fluids in his feeling much better and has passed the road test. Upon review of patient's labs that has noted that he does have a mild acute kidney injury. I attribute this to dehydration. Had long discussion with him regarding the need to double his efforts for rehydration. Offered admission however he would prefer to go home and drink more water. Did consider cardiac arrhythmia causing syncopal episode however troponins are reassuring as his EKG. I do not feel his retroperitoneal mass is related to his decreased renal function. I have advised patient to avoid NSAIDs until he is able to be re-evaluated. ER precautions regarding additional syncopal episodes chest pain or any other disconcerting symptoms discussed. Considered pulmonary embolism causing syncope however given his syncopal episode after standing in the fact that has on a blood thinner and he had not feel this is the case. CT scan of pelvis negative for fracture. Additional Information Ddx = ACS/TN, PE, atrial fibrillation, COPD, CHF, anemia, PTX, anxiety, PNA Departure Disposition: HOME / SELF CARE / HOMELESS Impression: Primary Impression: Palpitations Additional Impressions: Syncope Decreased renal function Condition: Stable Discharge Instructions: Dehydration, Adult, Syncope, Adult Additional Instructions: Double your efforts of drinking water. Avoid NSAIDs such as ibuprofen and a leave and switch to Tylenol until your able to have your kidney labs re- evaluated by your doctor. Call your doctor tomorrow for re-evaluation. Referrals: NO PRIMARY CARE PROVIDER (PCP) Education Educated: Patient Educated regarding: need for follow up Additional Comment Medical Screen Exam History: This 64-year-old male with history of the intermittent AFib presents with 2 hours of palpitations and dizziness, patient denies chest pain. Patient reports that he is on blood thinner for AFib. Exam: VITALS: Reviewed and as above. GENERAL: Alert, nontoxic appearing, no apparent distress. RESPIRATORY: No increased work of breathing, no respiratory distress, speaking in full clear sentences EKG demonstrated sinus tachycardia MSE performed in triage and patient returned to ED lobby by nursing staff The note accurately reflects work and decisions made by me.JANELL Castillo 03/11/25 14:38 Signature Scribe Signature: . Attestation: The note accurately reflects work and decisions made by me.Kirill Dent MD 03/11/25 22:13 . BUSTER CAMPOVERDE Mar 11, 2025 14:38 GEORGE YANG MD Mar 11, 2025 19:00 KIRILL DENT MD Mar 11, 2025 19:23
--- NOTE | 2025-03-11 14:39 | ELECTROCARDIOGRAPH REPORT ---
[facility] Test Date: 2025-03-11 Test Time: 14:19:47 Pat Name: HECTOR INTERIANO Department: EMERGENCY ROOM Room: Gender: M Slip Caster: : 1960 Requested By: ANN VAZQUEZ Order Number: [id number] Reading MD: Measurements Intervals [place] Rate: 112 P: 62 [place]: 123 QRS: 170 QRSD: 112 T: 23 QT: 349 QTc: 477 Interpretive Statements Sinus tachycardia Left posterior fascicular block Abnormal R-wave progression, late transition Inferior infarct, old Please click the below link to view image of tracing.
[2025-03-11 15:06] LABS: BASOPHILS % (AUTO) 0.3 % (0-1); EOSINOPHILS # (AUTO) 0.1 X10'3 (0-0.9); EOSINOPHILS % (AUTO) 0.9 % (0-6); HEMATOCRIT 45.5 % (42.0-52.0); HEMOGLOBIN 15.3 g/dl (14.0-17.9); LYMPHOCYTES # (AUTO) 1.8 X10'3 (1.1-4.8); LYMPHOCYTES % (AUTO) 17.2 % (21-51); MEAN CORPUSCULAR HEMOGLOBIN 28.7 PG (27.0-31.0); MEAN CORPUSCULAR HGB CONC 33.5 g/dL (33.0-36.5); MEAN CORPUSCULAR VOLUME 85.6 FL (78-98); MEAN PLATELET VOLUME 8.9 FL (7.4-10.4); MONOCYTES # (AUTO) 0.7 X10'3 (0-0.9); MONOCYTES % (AUTO) 6.4 % (2-12); NEUTROPHILS # (AUTO) 7.9 X10'3 (1.8-7.7); NEUTROPHILS % (AUTO) 75.2 % (42-75); PLATELET COUNT 290 X10'3 (140-440); RED BLOOD COUNT 5.32 X10'6 (4.70-6.10); WHITE BLOOD COUNT 10.5 X10'3 (4.5-11.0)
--- NOTE | 2025-03-11 15:28 | RADIOLOGY REPORT ---
CHEST RADIOGRAPH Indication: CP Technique: Single frontal view of the chest was obtained Comparison: DI CHEST,SINGLE VIEW on DOS: 12/15/23 FINDINGS: Lines and Tubes: None Lungs: No focal consolidation. Pleura: No effusion. No pneumothorax. Cardiomediastinal contours: Unremarkable Bones: No acute osseous abnormality. IMPRESSION: No acute cardiopulmonary disease.
[2025-03-11 15:33] LABS: ALBUMIN 3.8 G/DL (3.4-5.0); ANION GAP 11 (8-16); BLOOD UREA NITROGEN 37 MG/DL (7-18); BUN/CREATININE RATIO 20.4 (10.0-20.0); CALCIUM 8.9 MG/DL (8.5-10.1); CHLORIDE 106 MMOL/L (99-107); CREATININE 1.81 MG/DL (0.60-1.10); GLUCOSE 204 MG/DL (70-104); PRO BRAIN NATRIURETIC PEPTIDE 115 PG/ML (0-125); SODIUM 143 MMOL/L (135-145); TOTAL CARBON DIOXIDE 25.6 MMOL/L (24-32); eCRCL 49 ML/MIN; eGFR 38 ML/MIN
[2025-03-11 17:41] LABS: BILIRUBIN,URINE SMALL (Neg); CLARITY,URINE CLEAR (Clear); COLOR,URINE YELLOW (Yellow); GLUCOSE, URINE NEGATIVE (Neg); KETONES,URINE 15 mg/dl (Neg); LEUKOCYTE ESTERASE ,URINE NEGATIVE (Neg); NITRITES, URINE NEGATIVE (Neg); OCCULT BLOOD,URINE NEGATIVE (Neg); PH,URINE 5.5 (4.8-8.0); PROTEIN,URINE 30 mg/dl (Neg)
[2025-03-11 17:42] LABS: UA COLLECTION TYPE CLN CATCH MIDSTREAM
[2025-03-11 17:53] LABS: BACTERIA,URINE NONE SEEN /HPF (Neg); MUCUS STRANDS FEW /LPF (Neg); RBC,URINE 0-2 /HPF (0-2); SQUAMOUS EPITHELIAL CELL,UR NONE SEEN /LPF (FEW); WBC,URINE 0-4 /HPF (0-4)
[2025-03-11] MEDS: normal saline 1000ml 1,000 ML IV ONE (19:01)
--- NOTE | 2025-03-11 20:01 | RADIOLOGY REPORT ---
EXAM: CT CT HEAD INDICATION: fall, headache, blood thinners TECHNIQUE: CT of the head without intravenous contrast. Radiation Dose : 1. Head: CT Dose: CTDI volume is 68 mGy. Dose-length product is 1323 mGy*cm The dose indicators for CT are the volume Computed Tomography (CT) Dose Index (CTDIvol) and the Dose Length Product (DLP), and are measured in units of mGy and mGy-cm, respectively. These indicators are not patient dose, but values generated from the CT scanner acquisition factors. The report includes radiation exposure data for exposures received during this examination. COMPARISON: None FINDINGS: There is no evidence of acute intracranial hemorrhage, extra-axial collection, mass effect, midline s hift, herniation or hydrocephalus. The ventricles, sulci and cisterns are age appropriate. The reza-white differentiation is intact. Patchy periventricular and subcortical white matter hypoattenuation is nonspecific but may be related to small vessel ischemic disease. The visualized paranasal sinuses and mastoid air cells are clear. The surrounding soft tissues and osseous structures are unremarkable. IMPRESSION: 1. No acute intracranial abnormality. Radiation optimization: All CT scans at this facility use at least one of these dose optimization daniel hniques: automated exposure control mA and/or kV adjustment per patient size (includes targeted exam s where dose is matched to clinical indication) or iterative reconstruction.
--- NOTE | 2025-03-11 20:02 | RADIOLOGY REPORT ---
History: buttock pain s/p fall Comparison Study: None Technique: Multidetector spiral CT of the pelvis was performed from iliac crests to pubic symphysis. 100 cc of intravenous contrast was administered during this examination. Portal venous imaging was obtained. Axial, coronal and sagittal multiplanar reformats were performed by the technologist on a separate workstation. Radiation Dose : CT Dose: CTDI volume is 29.90 mGy. Dose-length product is 1341.23 mGy*cm Findings: Visualized bowel: There is colonic diverticulosis without CT evidence of diverticulitis. There is an umbilical hernia containing bowel without evidence of obstruction. Lymphadenopathy: There is redemonstration of an approximately 4 cm retroperitoneal heterogeneous soft tissue mass along the left common iliac artery. Pelvis Wall and Mesentery: Unremarkable. Vasculature: Atherosclerotic aortoiliac calcification. Pelvic Organs: Unremarkable Musculoskeletal: No aggressive focal bony lesions, acute fractures or dislocation. Bladder: Unremarkable. IMPRESSION: 1. No acute traumatic abnormality identified within the pelvis. 2. Redemonstration of an approximately 4 cm retroperitoneal heterogeneous soft tissue mass thickened concerning for malignancy. END IMPRESSION:
[2025-03-11] MEDS: acetaminophen 325mg tablet PO ONE (22:26)
[2025-03-11 22:27] VITALS: BP 137/80; PULSE 78; RESP 16; TEMP 97.8; O2SAT 99
== END 2025-03-11 22:32 | disposition home or self-care (01) ==
LOC: ER 14:20
DX: R00.2 Palpitations (principal); R55 Syncope and collapse; R42 Dizziness and giddiness; N28.9 Disorder of kidney and ureter, unspecified; E11.9 Type 2 diabetes mellitus without complications; I11.9 Hypertensive heart disease without heart failure; I50.9 Heart failure, unspecified; I25.10 Atherosclerotic heart disease of native coronary artery without angina pectoris; I25.2 Old myocardial infarction; I48.0 Paroxysmal atrial fibrillation; J44.9 Chronic obstructive pulmonary disease, unspecified; Z98.84 Bariatric surgery status; Z98.890 Other specified postprocedural states
CPT/HCPCS: 36415; 70450; 71045; 80048; 81001; 83880; 84484; 85025; 93005; 96360; 99285; J7030; 72192

== ENCOUNTER 2025-07-16 14:42 | Outpatient (CLI) | payer MEDICARE, MEDICAID ==
--- NOTE | 2025-07-15 17:47 | RADIOLOGY REPORT ---
Scoliosis spine Date: 07/15/2025 02:25 PM Indication: PSOAS MASS Comparison: DI LUMBAR SPINE LIMITED on DOS: 07/15/25, MR MRI LUMBAR SPINE on DOS: 10/16/24, MR MRI C SPINE on DOS: 10/16/24, CT CT T L SPINE on DOS: 09/16/24, CT CT CERVICAL SPINE on DOS: 09/16/24 Technique: Standing frontal and lateral views of the thoracolumbar spine were obtained. Findings/Impression: There is approximately 7 degrees of dextroscoliosis with the apex at T9-T10. There is approximately 4 degrees of levoscoliosis with the apex at L1.
--- NOTE | 2025-07-15 18:03 | RADIOLOGY REPORT ---
CLINICAL INDICATION: Hip pain TECHNIQUE: DI HIP, 1 VIEW WITH PELVIS Comparison: CT CT PELVIS on DOS: 03/11/25 FINDINGS/IMPRESSION: : There is no evidence of acute fracture or dislocation. Mild degenerative narrowing of the bilateral hip joint spaces. Calcified athero sclerosis is seen. A few phleboliths project over the bilateral pelvis.
--- NOTE | 2025-07-15 18:05 | RADIOLOGY REPORT ---
INDICATION: PSOAS MASS COMPARISON: MRI lumbar spine from 10/16/2024 TECHNIQUE: 2 views of the lumbar spine were obtained. FINDINGS: There are 5 [id number] lumbar type vertebral bodies. The vertebral body heights are maintained. Alignment is preserved. No acute appearing fracture. There is minor multilevel lower thoracic and lumbar spondylosis with multilevel osteophyte formation and facet hypertrophy. Disc space height remains preserved. Overlying soft tissues demonstrate calcified athero sclerosis. Scattered surgical clips are seen projecting over the abdomen. IMPRESSION: Minor multilevel lower thoracic and lumbar spondylosis. No acute appearing osseous abnormality.
[2025-07-16 13:34] LABS: CREATININE 1.24 MG/DL (0.60-1.10); TOTAL CARBON DIOXIDE 31.8 MMOL/L (24-32); eGFR 58 ML/MIN
[~2025-07-16 14:42] MED LIST changes: -LISI40TA13 PO; +LISI40TA20 PO
== END 2025-07-16 23:59 | disposition home or self-care (01) ==
LOC: MRI 14:42
PROVIDERS: ATTEND Physician Assistant
DX: M16.0 Bilateral primary osteoarthritis of hip (principal); M47.815 Spondylosis without myelopathy or radiculopathy, thoracolumbar region; M62.89 Other specified disorders of muscle; R94.8 Abnormal results of function studies of other organs and systems; I25.10 Atherosclerotic heart disease of native coronary artery without angina pectoris; I87.8 Other specified disorders of veins; M41.86 Other forms of scoliosis, lumbar region
CPT/HCPCS: 36415; 72084; 72100; 73501; 80048

== ENCOUNTER 2025-07-23 12:37 | Outpatient (CLI) | payer MEDICARE, MEDICAID ==
[~2025-07-23 12:37] MED LIST changes: +GADOTERATE MEGLUMINE 7.5 MMOL/15 ML VIAL IV ONE
--- NOTE | 2025-07-23 15:44 | RADIOLOGY REPORT ---
EXAM: MR MRI LUMBAR SPINE CLINICAL HISTORY: ABNORMAL RESULTS OF FUNCTION STUDIES OF ORGANS AND SYSTEMS COMPARISON: DI LUMBAR SPINE LIMITED on DOS: 07/15/25, DI ENTIRE SPINE (SCOLIOSIS) on DOS: 07/15/25, MR MRI LUMBAR SPINE on DOS: 10/16/24, CT CT T L SPINE on DOS: 09/16/24, CT CT CERVICAL SPINE on DOS: 09/16/24 TECHNIQUE: MRI imaging of the lumbar was performed on a MRI imaging system without intravenous contrast. findings: GENERAL Multilevel disc degeneration. Alignment: No spondylolisthesis identified. Vertebrae: Mild compression deformity of the L1 vertebral body with 21% height loss. Conus: Conus medullaris terminates at the T12-L1 level. T12-L1: Disc desiccation. No spinal canal or neural foraminal stenosis. Facet arthrosis. L1-2: Disc desiccation. No spinal canal or neural foraminal stenosis. Facet arthrosis. L2-3: Disc desiccation. No spinal canal or neural foraminal stenosis. Facet arthrosis. L3-4: Disc desiccation and 2.6 mm disc bulge. No spinal canal stenosis. Mild left foraminal stenosis. Facet arthrosis. L4-5: Disc desiccation and 4.25 mm disc bulge. Mild bilateral subarticular zone stenosis. Mild right foraminal stenosis. Facet arthrosis. L5-S1: Disc desiccation. No spinal canal or neural foraminal stenosis. Facet arthrosis. IMPRESSION: 1. Multilevel disc degeneration. Mild compression deformity of L1 with 21% height loss. Multilevel foraminal stenosis, most pronounced and mild at L4-L5. Mild bilateral subarticular zone stenosis at L4-L5 level.
--- NOTE | 2025-07-23 15:48 | RADIOLOGY REPORT ---
Exam: MR MRI PELVIS History: ABNORMAL RESULTS OF FUNCTION STUDIES OF ORGANS AND SYSTEMS Comparison: DI HIP, 1 VIEW WITH PELVIS on DOS: 07/15/25, DI LUMBAR SPINE LIMITED on DOS: 07/15/25, DI ENTIRE SPINE (SCOLIOSIS) on DOS: 07/15/25, CT CT PELVIS on DOS: 03/11/25, CT CT ABDOMEN PELVIS W/ IV CONTRAST on DOS: 02/22/25 Technique: Multisequence multiplanar MRI images were obtained of the pelvis. Findings: Bladder: Unremarkable. Visualized bowel: Colonic diverticulosis. Pelvic organs: Unremarkable Lymphadenopathy: Redemonstration of 3.8 x 3.7 cm enhancing soft-tissue mass at the junction of the left internal and external iliac artery bifurcation. Vasculature: There is normal enhancement of the pelvic vasculature. Ascites: Absent. Musculoskeletal: The bone marrow signal is preserved. Small fat containing left inguinal hernia. IMPRESSION: Redemonstration of 3.8 x 3.7 cm enhancing soft-tissue mass at the junction of the left internal and external iliac artery bifurcation. This is suspicious for neoplastic lymph node. This appears stable since CT dated 03/11/2025. Given location, this may be difficult access for percutaneous biopsy. Clinical correlation advised. PET-CT could be considered for further evaluation. Clinical correlation advised.
== END 2025-07-23 23:59 | disposition home or self-care (01) ==
LOC: MRI 12:37
PROVIDERS: ATTEND Neurological Surgery
DX: K57.30 Diverticulosis of large intestine without perforation or abscess without bleeding (principal); M62.89 Other specified disorders of muscle; R94.8 Abnormal results of function studies of other organs and systems; K44.9 Diaphragmatic hernia without obstruction or gangrene; K42.9 Umbilical hernia without obstruction or gangrene; N40.0 Benign prostatic hyperplasia without lower urinary tract symptoms; G31.9 Degenerative disease of nervous system, unspecified; N28.9 Disorder of kidney and ureter, unspecified
CPT/HCPCS: 72158; 72197; A9575

== ENCOUNTER 2025-07-23 15:18 | Emergency (ER) | payer MEDICARE, MEDICAID ==
[~2025-07-23] VITALS: Ht 193 cm; Wt 115.7 kg
[~2025-07-23 15:18] MED LIST changes: -GADOTERATE MEGLUMINE 7.5 MMOL/15 ML VIAL IV ONE
[2025-07-23 15:26] VITALS: TEMP 97.8
[2025-07-23 16:00] LABS: MEAN PLATELET VOLUME 8.3 FL (7.4-10.4); RED CELL DISTRIBUTION WIDTH 14.4 % (11.5-14.5)
[2025-07-23 16:17] LABS: CREATININE 1.18 MG/DL (0.60-1.10); TOTAL CARBON DIOXIDE 34.6 MMOL/L (24-32); eCRCL 75 ML/MIN; eGFR 62 ML/MIN
--- NOTE | 2025-07-23 17:53 | Physician Documentation ---
History of Present Illness Chief Complaint: Abdominal Pain Stated Complaint: ABD PAIN Primary Medical Doctor: PABLO SALAZAR, Dr. Baptistecardio NAVEEN This 65-year-old male presents with right lower quadrant pain onset today, patient reports that he was having a MRI performed due to a abdominal tumor. Patient reports abdominal surgery approximately two months prior. He reports that Dr. 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 Medication Reconciliation Allergies: Coded Allergies: No Known Allergies (Unverified , 07/23/25) Scheduled Amlodipine Besylate (Amlodipine Besylate), 5 MG PO HS, (Reported) Atorvastatin Calcium (Atorvastatin Calcium), 1 TAB PO DAILY, (Reported) Chlorthalidone (Chlorthalidone), 25 MG PO DAILY, (Reported) Cholecalciferol (Vitamin D), 5 CAP PO DAILY, (Reported) Cyanocobalamin (Vitamin B-12) (B-12), 5,000 MCG PO DAILY, (Reported) Diltiazem Hcl (Cartia Xt), 120 MG PO DAILY, (Reported) Gabapentin (Gabapentin), 1 CAP PO Q8H Levothyroxine Sodium (Synthroid), 0.137 MG PO DAILY, (Reported) Lisinopril* (Lisinopril*), 0.5 TAB PO DAILY, (Reported) Methocarbamol (Methocarbamol), 1 TAB PO Q8H Metoprolol Succinate* (Toprol Xl*), 1 TAB PO QPM, (Reported) Rosuvastatin Calcium* (Crestor*), 1 TAB PO QPM, (Reported) Tamsulosin Hcl* (Flomax*), 1 CAP PO BID, (Reported) Scheduled PRN Hydrocodone Bit/Acetaminophen ([place] 10-325 Tablet), 1 TAB PO Q8H PRN for P, (Reported) Omeprazole (Prilosec), 40 MG PO DAILY PRN for indigestion/dyspepsia, (Reported) Past Medical History Past Medical History: Arrhythmia, Atrial Fibrillation, Coronary Artery Disease, Congestive Heart Failure, Hypertension, Myocardial Infarction, COPD, Diverticulitis, Diverticulosis, Hernia, Renal Disease, Diabetes, Chronic Pain Past Surgical History: abdominal surgery, gastric bypass, orthopedic surgeries, other Other Past Surgical History: ablation, hernia repair x3 Alcohol Use: None Drug Use: none Lives with: Alone Lives In: Home Occupation: disabled Review of Systems ROS As stated above in the HPI, otherwise all systems are reviewed and negative. Physical Exam Vital Signs: Temperature: 97.8, Source: Temporal, Heart Rate: 78, Respiratory Rate: 18, BP: 144/81, Pulse Oximetry: 99, Weight: 115.700 Physical Exam General: Patient is awake, alert, oriented x4 in no acute distress Head: Normocephalic and atraumatic. Eyes: Conjunctival normal. EOMI. PERRL. ENT: Mucous membranes moist. Neck: Supple, trachea is midline. Chest: Clear to auscultation bilaterally without rales, rhonchi, or wheezes. There is no accessory muscle use or retractions. Cardiac: RRR without murmurs, gallops, or rubs. Abd: Soft, nondistended, pain with tenderness to vertical surgical site scar with a palpable mass with tenderness to palpation Progress Results/Orders Results/Orders Vital Signs 07/23/25 15:26 Temp 97.8 Pulse 78 Resp 18 B/P (MAP) 144/81 Pulse Ox 99 Laboratory Tests Test 07/23/25 15:52 White Blood Count 8.5 Red Blood Count 5.22 Hemoglobin 14.7 Hematocrit 44.1 Mean Corpuscular Volume 84.4 Mean Corpuscular Hemoglobin 28.1 Mean Corpuscular Hemoglobin Concent 33.3 Red Cell Distribution Width 14.4 Platelet Count 294 Mean Platelet Volume 8.3 Neutrophils (%) (Auto) 75.6 H Lymphocytes (%) (Auto) 16.1 L Monocytes (%) (Auto) 6.4 Eosinophils (%) (Auto) 1.1 Basophils (%) (Auto) 0.8 Neutrophils # (Auto) 6.5 Lymphocytes # (Auto) 1.4 Monocytes # (Auto) 0.5 Eosinophils # (Auto) 0.1 Basophils # (Auto) 0.1 CBC Comment Sodium Level 143 Potassium Level 3.5 Chloride Level 101 Carbon Dioxide Level 34.6 H Anion Gap 7 L Blood Urea Nitrogen 25 H Creatinine 1.18 H Estimated GFR/1.73 m2 62 BUN/Creatinine Ratio 21.2 H Glucose Level 120 H Calcium Level 8.9 Total Bilirubin 0.4 Aspartate Amino Transf (AST/SGOT) 20 Alanine Aminotransferase (ALT/SGPT) 18 Alkaline Phosphatase 92 Total Protein 7.4 Albumin 3.6 Globulin 3.8 Albumin/Globulin Ratio 0.9 L Lipase 57 Chemistry Comments Medical Decision Making Additional information obtaine: old records Findings Patient presented to the emergency room with abdominal pain as per HPI. Differentials include but are not limited to dehiscence, hernia, intra-abdominal infection, abscess therefore emergent labs and imaging indicated. Labs and imaging is reassuring. Although he does have some tenderness to the palpation of this lower surgical site that has not from a hernia or abscess. I suspect he may have pulled a subcutaneous stitch given tenderness to palpation. The need to follow up with his doctor discussed as well as ER precautions Differential Dx:Considerations: Aortic dissection, Bowel obstruction, Cholangitis Departure Disposition: HOME / SELF CARE / HOMELESS Impression: Primary Impression: Abdominal pain Condition: Stable Discharge Instructions: Abdominal Pain (Nonspecific) Referrals: NO PRIMARY CARE PROVIDER (PCP) Signature Scribe Signature: No scribe Attestation: The note accurately reflects work and decisions made by me.Kirill Dent MD 07/23/25 23:42 BUSTER CAMPOVERDE Jul 23, 2025 17:53 KIRILL DENT MD Jul 23, 2025 22:23
[2025-07-23] MEDS: GADOTERATE MEGLUMINE 7.5 MMOL/15 ML VIAL IV ONE (18:17)
[2025-07-23 21:43] LABS: LEUKOCYTE ESTERASE ,URINE NEGATIVE (Neg); NITRITES, URINE NEGATIVE (Neg); OCCULT BLOOD,URINE NEGATIVE (Neg)
[2025-07-23 21:50] LABS: UA COLLECTION TYPE CLN CATCH MIDSTREAM
[2025-07-23] MEDS ORDERED: iohexol 300mg/ml 100ml inj. ONE (22:26)
[2025-07-23] MEDS: acetaminophen 1,000mg/100ml IV 100 ML IV ONE (23:01)
[2025-07-23] MEDS: normal saline 1000ml 1,000 ML IV ONE (23:01)
[2025-07-23] MEDS: ketorolac trometh 15mg/ml vial 15 MG/ML ML IV ONE (23:01)
--- NOTE | 2025-07-23 23:26 | RADIOLOGY REPORT ---
Exam: CT CT ABDOMEN PELVIS W/ IV CONTRAST History: abd pain COMPARISON: CT CT ABDOMEN PELVIS W/ IV CONTRAST on DOS: 02/22/25, CT ABDOMEN PELVIS on DOS: 11/18/21 Technique: Multidetector spiral CT of the abdomen and pelvis was performed from lung bases to pubic symphysis. Intravenous contrast was administered during this examination. Portal venous imaging was obtained. Axial, coronal and sagittal multiplanar reformats were performed by the technologist on a separate workstation. Radiation Dose : 1. Abdomen/Pelvis: CTDIvol 35 mGy, DLP 1802 mGy*cm. Findings: Lower Chest: No acute findings. Liver: Diffuse hypoenhancement relative to the spleen. No focal lesion identified. Gallbladder and Biliary Tree: Unremarkable Pancreas: Moderate atrophy. Spleen: Unremarkable Adrenal Glands: Unremarkable Kidneys: No acute abnormality. Bilateral renal hypodense lesions redemonstrated. Bladder: Nondistended with uniformly dense intraluminal contents, likely excreted contrast. Pelvic Organs: Prostatomegaly. Bowel: No wall thickening or obstruction. Sleeve gastrectomy postsurgical change. Normal appendix. Colonic diverticulosis without diverticulitis. Vasculature: Moderate atherosclerosis. Lymphadenopathy: Unchanged left retroperitoneal 4.1 cm mass along the common iliac vessels. Peritoneum: New subtle inferior mesenteric/omental stranding along a few small- bowel loops. No ascites, free air, or fluid collection. Abdominal Wall: Extensive ventral hernia repair redemonstrated. Musculoskeletal: No acute abnormality. IMPRESSION: 1. New nonspecific inferior peritoneal soft tissue stranding along small bowel loops. No bowel wall thickening or obstruction. Findings may represent mild volume overload or minimal inflammatory process. 2. No other acute abdominopelvic abnormality or significant change from prior exams. Redemonstrated left retroperitoneal suspicious mass. Other chronic and incidental findings above. Radiation optimization: All CT scans at this facility use at least one of these dose optimization techniques: automated exposure control mA and/or kV adjustment per patient size (includes targeted exams where dose is matched to clinical indication) or iterative reconstruction.
[2025-07-23 23:57] VITALS: BP 115/75; PULSE 72; RESP 16; O2SAT 98
== END 2025-07-23 23:59 | disposition home or self-care (01) ==
LOC: ER 15:18
DX: R10.31 Right lower quadrant pain (principal); E11.9 Type 2 diabetes mellitus without complications; I11.0 Hypertensive heart disease with heart failure; I50.9 Heart failure, unspecified; I25.10 Atherosclerotic heart disease of native coronary artery without angina pectoris; I25.2 Old myocardial infarction; I48.91 Unspecified atrial fibrillation; J44.9 Chronic obstructive pulmonary disease, unspecified; Z98.84 Bariatric surgery status; Z98.890 Other specified postprocedural states
CPT/HCPCS: 36415; 74177; 80053; 81003; 83690; 85025; 96365; 96375; 99285; J0131; J1885; J7030; Q9967